=== PATIENT | female | born 1940 | race Caucasian/White ===

== ENCOUNTER → 2018-01-13 | Outpatient (CLI) | payer MEDICARE ==
--- NOTE | 2018-01-13 14:12 | XR ---
Abdomen HISTORY: Kidney stone Frontal view the abdomen on 2 images, no comparisons There is a levoscoliosis, degenerative disc changes are associated with the spine. Multiple calcifica tions are noted at the level of the kidneys. There are approximately 6-7 calcifications suspected wit hin the right kidney, largest measures approximately 9 mm. Approximately 3-4 calcifications suspected over the left kidney, largest approximately 6 mm. There are indeterminate calcifications within the pelvis. Retained fecal debris, bowel gas may obscure underlying detail. No evident bowel obstruction or pneumoperitoneum. Suspect elevation of the right hemidiaphragm. IMPRESSION: Suspect bilateral nephrolithiasis.
== END | disposition home or self-care (01) ==
LOC: RADXRMAIN 11:18
PROVIDERS: ATTEND Urology
DX: N20.0 Calculus of kidney (principal)
CPT/HCPCS: 74018

== ENCOUNTER 2019-07-01 15:12 | Inpatient (IN) | payer MEDICARE ==
--- NOTE | 2019-07-01 15:42 | ED ---
General Adult HPI - General Chief complaint: Recheck/Abnormal Lab/Rx Stated complaint: Poss Pneumonia Time Seen by Provider: 07/01/19 15:15 Source: patient, RN notes reviewed, old records reviewed Mode of arrival: wheelchair Limitations: no limitations - History of Present Illness Initial comments: This is a 78-year-old female who presents emergency department with past medical history significant for atrial fibrillation. Patient states the last couple of months she's been a little short of breath and had a cough. 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 Patient also complains of right knee pain she thinks she twisted it yesterday. Patient says it has been bothered for quite a while but it's much bigger than it is normally. - Related Data Allergies Allergy/AdvReac Type Severity Reaction Status Date / Time Penicillins Allergy Diarrhea Verified 07/01/19 15:20 Sulfa (Sulfonamide Allergy Itching Verified 07/01/19 15:20 Antibiotics) Review of Systems ROS Statement: Those systems with pertinent positive or pertinent negative responses have been documented in the HPI. ROS Other: All systems not noted in ROS Statement are negative. Past Medical History Past Medical History: Atrial Fibrillation, Diabetes Mellitus, Hypertension History of Any Multi-Drug Resistant Organisms: None Reported Past Surgical History: Hysterectomy Additional Past Surgical History / Comment(s): shoulder surgery Past Psychological History: No Psychological Hx Reported Smoking Status: Never smoker Past Alcohol Use History: None Reported Past Drug Use History: None Reported General Exam - General Exam Comments Initial Comments: GENERAL: Patient is well-developed and well-nourished. Patient is nontoxic and well- hydrated and is in mild distress. ENT: Neck is soft and supple. No significant lymphadenopathy is noted. Oropharynx is clear. Moist mucous membranes. Neck has full range of motion without tomas citing any pain. EYES: The sclera were anicteric and conjunctiva were pink and moist. Extraocular movements were intact and pupils were equal round and reactive to light. Eyelids were unremarkable. PULMONARY: Patient has crackles in the left base CARDIOVASCULAR: Patient has an irregular heartbeat ABDOMEN: Soft and nontender with normal bowel sounds. SKIN: Right knee has a significant effusion NEUROLOGIC: Patient is alert and oriented x3. Cranial nerves II through XII are grossly intact. Motor and sensory are also intact. Normal speech, volume and content. Symmetrical smile. MUSCULOSKELETAL: Normal extremities with adequate strength and full range of motion. LYMPHATICS: No significant lymphadenopathy is noted PSYCHIATRIC: Normal psychiatric evaluation. Limitations: no limitations Course Vital Signs 07/01/19 07/01/19 07/01/19 15:15 16:20 16:38 Temperature 97.8 F Pulse Rate 110 H Respiratory 18 20 16 Rate Blood Pressure 157/84 O2 Sat by Pulse 96 Oximetry Medical Decision Making - Medical Decision Making EKG is atrial fibrillation 77 bpm QRS is 90 QT interval 396 QTC is 448. Patient's EKG shows no ST segment elevation or depression. V1 is of poor quality. Chest x-ray shows a right upper lobe infiltrate Started patient on [facility] emergency pertinent. I spoke with Dr. Theodore agreed to admit the patient admitted the patient wrote admitting orders. Knee x-ray did not show any acute fractures however there was an effusion. - Lab Data Result diagrams: 07/01/19 16:13 07/01/19 16:13 Lab Results 07/01/19 07/01/19 07/01/19 Range/Units 16:13 16:13 16:13 WBC 10.9 H (3.8-10.6) k/uL RBC 4.97 (3.80-5.40) m/uL Hgb 14.2 (11.4-16.0) gm/dL Hct 44.1 (34.0-46.0) % MCV 88.7 (80.0-100.0) fL MCH 28.6 (25.0-35.0) pg MCHC 32.3 (31.0-37.0) g/dL RDW 12.6 (11.5-15.5) % Plt Count 316 (150-450) k/uL Neutrophils % 82 % Lymphocytes % 9 % Monocytes % 6 % Eosinophils % 1 % Basophils % 0 % Neutrophils # 9.0 H (1.3-7.7) k/uL Lymphocytes # 1.0 (1.0-4.8) k/uL Monocytes # 0.7 (0-1.0) k/uL Eosinophils # 0.1 (0-0.7) k/uL Basophils # 0.0 (0-0.2) k/uL PT 11.2 (9.0-12.0) sec INR 1.1 (<1.2) APTT 27.1 (22.0-30.0) sec Sodium 134 L (137-145) mmol/L Potassium 3.5 (3.5-5.1) mmol/L Chloride 97 L (98-107) mmol/L Carbon Dioxide 29 (22-30) mmol/L Anion Gap 8 mmol/L BUN 11 (7-17) mg/dL Creatinine 0.39 L (0.52-1.04) mg/dL Est GFR (CKD-EPI)AfAm >90 (>60 ml/min/1.73 sqM) Est GFR (CKD-EPI)NonAf >90 (>60 ml/min/1.73 sqM) Glucose 259 H (74-99) mg/dL Plasma Lactic Acid Graham (0.7-2.0) mmol/L Calcium 9.1 (8.4-10.2) mg/dL Magnesium 1.7 (1.6-2.3) mg/dL Total Bilirubin 0.6 (0.2-1.3) mg/dL AST 41 H (14-36) U/L ALT 31 (4-34) U/L Alkaline Phosphatase 197 H (38-126) U/L Troponin I (0.000-0.034) ng/mL NT-Pro-B Natriuret Pep pg/mL Total Protein 7.4 (6.3-8.2) g/dL Albumin 3.5 (3.5-5.0) g/dL 07/01/19 07/01/19 07/01/19 Range/Units 16:13 16:13 16:13 WBC (3.8-10.6) k/uL RBC (3.80-5.40) m/uL Hgb (11.4-16.0) gm/dL Hct (34.0-46.0) % MCV (80.0-100.0) fL MCH (25.0-35.0) pg MCHC (31.0-37.0) g/dL RDW (11.5-15.5) % Plt Count (150-450) k/uL Neutrophils % % Lymphocytes % % Monocytes % % Eosinophils % % Basophils % % Neutrophils # (1.3-7.7) k/uL Lymphocytes # (1.0-4.8) k/uL Monocytes # (0-1.0) k/uL Eosinophils # (0-0.7) k/uL Basophils # (0-0.2) k/uL PT (9.0-12.0) sec INR (<1.2) APTT (22.0-30.0) sec Sodium (137-145) mmol/L Potassium (3.5-5.1) mmol/L Chloride (98-107) mmol/L Carbon Dioxide (22-30) mmol/L Anion Gap mmol/L BUN (7-17) mg/dL Creatinine (0.52-1.04) mg/dL Est GFR (CKD-EPI)AfAm (>60 ml/min/1.73 sqM) Est GFR (CKD-EPI)NonAf (>60 ml/min/1.73 sqM) Glucose (74-99) mg/dL Plasma Lactic Acid Graham 1.9 (0.7-2.0) mmol/L Calcium (8.4-10.2) mg/dL Magnesium (1.6-2.3) mg/dL Total Bilirubin (0.2-1.3) mg/dL AST (14-36) U/L ALT (4-34) U/L Alkaline Phosphatase (38-126) U/L Troponin I <0.012 (0.000-0.034) ng/mL NT-Pro-B Natriuret Pep 2010 pg/mL Total Protein (6.3-8.2) g/dL Albumin (3.5-5.0) g/dL Disposition Clinical Impression: Pneumonia, Knee effusion Disposition: ADMITTED IP TO THIS HOSP Is patient prescribed a controlled substance at d/c from ED?: No Referrals: Edvin Lloyd MD [Primary Care Provider] - 1-2 days Time of Disposition: 17:49
[2019-07-01 16:24] LABS: Basophils % (A) 0 %; Eosinophils # (A) 0.1 k/uL (0-0.7); Eosinophils % (A) 1 %; HCT 44.1 % (34.0-46.0); HGB 14.2 gm/dL (11.4-16.0); Lymphocytes % (A) 9 %; MCH 28.6 pg (25.0-35.0); MCHC 32.3 g/dL (31.0-37.0); MCV 88.7 fL (80.0-100.0); Mean Platelet Volume 8.7; Monocytes # (A) 0.7 k/uL (0-1.0); Monocytes % (A) 6 %; Neutrophils % (A) 82 %; Platelet Count 316 k/uL (150-450); RBC 4.97 m/uL (3.80-5.40); RDW 12.6 % (11.5-15.5); WBC 10.9 k/uL (3.8-10.6)
[2019-07-01 16:32] LABS: ALT 31 U/L (4-34); AST 41 U/L (14-36); African American GFR (CKD) >90 (>60 ml/min/1.73 sqM); Albumin 3.5 g/dL (3.5-5.0); Alkaline Phosphatase 197 U/L (38-126); Anion Gap 8 mmol/L; Blood Urea Nitrogen 11 mg/dL (7-17); Calcium 9.1 mg/dL (8.4-10.2); Carbon Dioxide 29 mmol/L (22-30); Chloride 97 mmol/L (98-107); Glucose 259 mg/dL (74-99); INR 1.1 (<1.2); Magnesium 1.7 mg/dL (1.6-2.3); Non-African American GFR(CKD) >90 (>60 ml/min/1.73 sqM); Partial Thromboplastin Time 27.1 sec (22.0-30.0); Potassium 3.5 mmol/L (3.5-5.1); Prothrombin Time 11.2 sec (9.0-12.0); Sodium 134 mmol/L (137-145); Total Bilirubin 0.6 mg/dL (0.2-1.3); Total Protein 7.4 g/dL (6.3-8.2)
--- NOTE | 2019-07-01 16:58 | XR ---
EXAMINATION TYPE: XR knee complete RT DATE OF EXAM: 07/01/2019 CLINICAL HISTORY: pain TECHNIQUE: Three views of the right knee are obtained. COMPARISON: None. FINDINGS: There is no acute fracture/dislocation. The tri-compartment joint spaces appear narrowed. Calcifications suprapatellar bursa with fluid noted. IMPRESSION: There is no acute fracture or dislocation.ICD 10 NO FRACTURE, INITIAL EVALUATION
--- NOTE | 2019-07-01 17:08 | XR ---
EXAMINATION TYPE: XR chest 2V DATE OF EXAM: 07/01/2019 COMPARISON: NONE HISTORY: Shortness of breath TECHNIQUE: Frontal and lateral views of the chest are obtained. FINDINGS: Scattered senescent parenchymal changes noted. Hyperinflation compatible with COPD. Infiltrate right upper lobe may reflect postinflammatory change however pneumonia is not excluded. Co rrelate clinically. Heart size is stable. Mediastinal structures are stable and grossly unremarkable. No evidence for hilar prominence. Degenerative changes dorsal spine. IMPRESSION: 1. Infiltrate right upper lobe may reflect postinflammatory change however pneumonia is not excluded. Correlate clinically.
[2019-07-01] MEDS ORDERED: cefTRIAXone IN SWFI 1,000 MG/10 ML SYRINGE IVP STA (17:29)
[2019-07-01] MEDS ORDERED: AZITHROMYCIN 500 MG in SODIUM CHLORIDE 0.9% 250 ML IVPB STA (17:51)
[2019-07-01] MEDS ORDERED: PNEUMONIA PROTOCOL UTILIZED 1 EACH MISC PO PRN (17:51)
[2019-07-01] MEDS ORDERED: SODIUM CHLORIDE 0.9% 1,000 ML IV SCH (19:15)
[2019-07-01] MEDS ORDERED: ALBUTEROL NEBULIZED 2.5 MG/3 ML INHALATION PRN (19:56)
[2019-07-01 20:38] LABS: Glucose,Whole Blood 138 mg/dL (75-99)
[2019-07-01] MEDS: INSULIN ASPART (NovoLOG) 100 UNIT/ML VIAL SQ SCH (20:48)
[2019-07-01] MEDS: METOPROLOL TARTRATE 12.5 MG TAB PO SCH (20:48)
[2019-07-01] MEDS: APIXABAN 5 MG TAB PO SCH (20:48)
[2019-07-01] MEDS: cloNIDine HCL 0.1 MG TAB PO SCH (20:48)
[2019-07-01] MEDS: ACETAMINOPHEN TAB 325 MG TAB PO PRN (20:48)
--- NOTE | 2019-07-01 21:18 | P.HPIM ---
History of Present Illness H&P Date: 07/01/19 Chief Complaint: Right knee pain History of presenting complaint: This is a pleasant 78-year-old patient of Dr. Edvin Lloyd. Chronic stable medical conditions include atrial fibrillation, diabetes, hypertension. Patient for 1 day having increased pain in the right knee. Not sure if she twisted it while sleeping. Also swollen. Trouble walking the same. No fever no chills. Patient has recently diagnosed with atrial fibrillation on eliquis. Being followed by Dr. YOAN Urbina. Patient had some shortness of breath for quite sometimes occasional cough with frothy sputum. Chest x-ray showed some venous prominence. No colored sputum. No fever or chills. Review of systems: GEN.: Tired EYES: None HEENT: None NECK: None RESPIRATORY: As above CARDIOVASCULAR: None GASTROINTESTINAL: None GENITOURINARY: None MUSCULOSKELETAL: As above LYMPHATICS: None HEMATOLOGICAL: None PSYCHIATRY: None NEUROLOGICAL: None Past medical history to include: Atrial fibrillation, diet-controlled diabetes, hypertension, Social history: Does smoke in the remote past no alcohol. Lives with son. Physical examination: VITAL SIGNS: 97.8, 110, 18, 157/84, 96% on room air GENERAL: BMI 25.5, laying in bed, awake. EYES: Pupils equal. Conjunctiva normal. HEENT: External appearance of nose and ears normal, oral cavity grossly normal. NECK: JVD unable to assess; masses not palpable. HEART: Heart sounds irregular; no edema. LUNGS: Respiratory rate normal; bilateral basal crackles. ABDOMEN: Soft, nontender, liver spleen not palpable, no masses palpable. PSYCH: Alert and oriented x3; mood and affect normal. MUSCULAR skeletal: Swelling of the right knee with some local increased temperature evidence of OA especially in the hands NEUROLOGICAL: Cranial nerves grossly intact; no facial asymmetry, power and sensation grossly intact. LYMPHATICS: No lymph nodes palpable in the axilla and neck INVESTIGATIONS, reviewed in the clinical context: White count 10.9 hemoglobin 14.2 potassium 3.5 creatinine 0.39 Troponin I less than 0.012 proBNP 2009 EKG tracing personally reviewed by me-atrial fibrillation Chest x-ray film personally reviewed by me-venous prominence Assessment: -Acute congestive heart failure exacerbation -Acute right knee osteoarthritis flare up with signs of inflammation -Persistent atrial fibrillation chronically on eliquis -Essential hypertension Plan: Patient be put on telemetry. IV Lasix 40 mg daily. Order 2-D echocardiogram. Consultation to cardiology and orthopedic. Home medications to be resumed. Care was discussed with the patient question were answered. Will apply ice and the warfarin Gen. to the right knee. Care was discussed with the patient questions were answered. Past Medical History Past Medical History: Atrial Fibrillation, Diabetes Mellitus, Hypertension History of Any Multi-Drug Resistant Organisms: None Reported Past Surgical History: Hysterectomy, Tonsillectomy, Tubal Ligation Additional Past Surgical History / Comment(s): shoulder surgery Past Psychological History: No Psychological Hx Reported Smoking Status: Former smoker Past Alcohol Use History: None Reported Past Drug Use History: None Reported - Past Family History Mother Family Medical History: Cancer, Thyroid Disorder Additional Family Medical History / Comment(s): of lung cancer Father Additional Family Medical History / Comment(s): a lot of heart issues Medications and Allergies Home Medications Medication Instructions Recorded Confirmed Type Albuterol Sulfate [Proair Hfa] 2 puff INHALATION RT-Q4H PRN 07/01/19 07/01/19 History Apixaban [Eliquis] 5 mg PO BID 07/01/19 07/01/19 History Cholecalciferol [Vitamin D3 (25 1,000 unit PO DAILY 07/01/19 07/01/19 History Mcg = 1000 Iu)] Ferrous Sulfate [Feosol] 325 mg PO DAILY 07/01/19 07/01/19 History Furosemide [Lasix] 20 mg PO DAILY 07/01/19 07/01/19 History Ipratropium Union [Ipratropium 2 sprays EA NOSTRIL BID PRN 07/01/19 07/01/19 History Union 0.03%] L.acidoph,Paracasei, B.lactis 1 cap PO DAILY 07/01/19 07/01/19 History [Probiotic] Lisinopril-Hctz 20-25 mg 1 tab PO DAILY 07/01/19 07/01/19 History [Zestoretic 20-25] Loratadine [Claritin] 10 mg PO DAILY 07/01/19 07/01/19 History Metoprolol Tartrate [Lopressor] 12.5 mg PO HS 07/01/19 07/01/19 History Metoprolol Tartrate [Lopressor] 25 mg PO DAILY 07/01/19 07/01/19 History Nitrofurantoin Macrocrystal 50 mg PO DAILY 07/01/19 07/01/19 History [Nitrofurantoin] Omeprazole Magnesium [PriLOSEC OTC] 20 mg PO DAILY 07/01/19 07/01/19 History Vitamin B Complex 1 cap PO DAILY 07/01/19 07/01/19 History cloNIDine HCL [Catapres] 0.1 mg PO BID 07/01/19 07/01/19 History Allergies Allergy/AdvReac Type Severity Reaction Status Date / Time Sulfa (Sulfonamide Allergy Itching Verified 07/01/19 18:22 Antibiotics) Penicillins AdvReac Diarrhea Verified 07/01/19 18:22 Physical Exam Vitals: Vital Signs Temp Pulse Pulse Resp BP BP Pulse Ox 07/01/19 19:20 97.9 F 93 17 115/74 96 07/01/19 18:55 98.7 F 107 H 18 140/81 96 07/01/19 17:57 18 159/84 07/01/19 16:38 16 07/01/19 16:20 20 07/01/19 16:00 103 H 18 143/86 98 07/01/19 15:15 97.8 F 110 H 18 157/84 96 Intake and Output 07/01/19 07/01/19 07/01/19 06:59 14:59 22:59 Intake Total 300 Balance 300 Intake: Amount of Fluid Infused ( 100 ml) Oral 200 Other: # Voids 1 Weight 69.4 kg Results CBC & Chem 7: 07/01/19 16:13 07/01/19 16:13 Labs: Abnormal Lab Results - Last 24 Hours (Table) 07/01/19 07/01/19 07/01/19 Range/Units 16:13 16:13 20:37 WBC 10.9 H (3.8-10.6) k/uL Neutrophils # 9.0 H (1.3-7.7) k/uL Sodium 134 L (137-145) mmol/L Chloride 97 L (98-107) mmol/L Creatinine 0.39 L (0.52-1.04) mg/dL Glucose 259 H (74-99) mg/dL POC Glucose (mg/dL) 138 H (75-99) mg/dL AST 41 H (14-36) U/L Alkaline Phosphatase 197 H (38-126) U/L Thrombosis Risk Factor Assmnt - Choose All That Apply Any of the Below Risk Factors Present?: No Other Risk Factors: Yes Each Risk Factor Represents 3 Points: Age 75 years or older Thrombosis Risk Factor Assessment Total Risk Factor Score: 3 Thrombosis Risk Factor Assessment Level: Moderate Risk
[2019-07-01] MEDS: DICLOFENAC SODIUM GEL 100 GM TUBE TOPICAL SCH (22:33)
[2019-07-01] MEDS: FUROSEMIDE 10 MG/ML 4 ML VIAL IV SCH (22:34)
[2019-07-02] MEDS: FUROSEMIDE 10 MG/ML 4 ML VIAL IV SCH ×2 (00:52→08:29)
[2019-07-02] MEDS: ACETAMINOPHEN TAB 325 MG TAB PO PRN ×2 (06:08→12:18)
[2019-07-02 06:48] LABS: Glucose,Whole Blood 128 mg/dL (75-99)
[2019-07-02] MEDS: INSULIN ASPART (NovoLOG) 100 UNIT/ML VIAL SQ SCH ×4 (07:13→20:42)
[2019-07-02 08:05] LABS: African American GFR (CKD) >90 (>60 ml/min/1.73 sqM); Anion Gap 9 mmol/L; Blood Urea Nitrogen 14 mg/dL (7-17); Calcium 9.2 mg/dL (8.4-10.2); Carbon Dioxide 27 mmol/L (22-30); Chloride 99 mmol/L (98-107); Glucose 141 mg/dL (74-99); Non-African American GFR(CKD) >90 (>60 ml/min/1.73 sqM); Potassium 3.8 mmol/L (3.5-5.1); Sodium 135 mmol/L (137-145)
[2019-07-02] MEDS: LISINOPRIL-HCTZ 20-25 MG 1 EACH TAB PO SCH (08:28)
[2019-07-02] MEDS: METOPROLOL TARTRATE 25 MG TAB PO SCH (08:28)
[2019-07-02] MEDS: PANTOPRAZOLE 40 MG TABLET PO SCH (08:28)
[2019-07-02] MEDS: APIXABAN 5 MG TAB PO SCH ×2 (08:29→20:45)
[2019-07-02] MEDS: LACTOBACILLUS ACIDOPH & BULGAR 1 EACH PACKET PO SCH (08:29)
[2019-07-02] MEDS: cloNIDine HCL 0.1 MG TAB PO SCH ×2 (08:29→20:45)
[2019-07-02] MEDS: LORATADINE 10 MG TAB PO SCH (08:29)
[2019-07-02] MEDS: FERROUS SULFATE 325 MG TAB PO SCH (08:29)
[2019-07-02] MEDS: CHOLECALCIFEROL 1,000 UNIT TAB PO SCH (08:29)
[2019-07-02] MEDS: DICLOFENAC SODIUM GEL 100 GM TUBE TOPICAL SCH ×4 (08:31→20:46)
[2019-07-02] MEDS ORDERED: FUROSEMIDE 20 MG TAB PO SCH (09:00)
[2019-07-02] MEDS ORDERED: NON FORMULARY DRUG (Vitamin B Complex [Vitamin B Complex] 1 CAP) PO SCH (09:00)
--- NOTE | 2019-07-02 09:56 | ECHOF ---
Referral Reason:CHF MEASUREMENTS -------- HEIGHT: 165.1 cm WEIGHT: 69.4 kg BP: 131/81 RVIDd: 4.0 cm (< 3.3) IVSd: 1.5 cm (0.6 - 1.1) LVIDd: 3.0 cm (3.9 - 5.3) LVPWd: 1.2 cm (0.6 - 1.1) IVSs: 2.1 cm LVIDs: 1.6 cm LVPWs: 2.0 cm LAESV Index (A-L): 41.11 ml/m Ao Diam: 2.9 cm (2.0 - 3.7) AV Cusp: 1.5 cm (1.5 - 2.6) AV maxP.59 mmHg AV meanP.04 mmHg AR PHT: 344 ms RAP: 5.00 mmHg RVSP: 55.14 mmHg FINDINGS -------- Atrial fibrillation. This was a technically good study. The left ventricular size is normal. There is moderate concentric left ventricular hypertrophy. O verall left ventricular systolic function is normal with, an EF between 60 - 65 %. Left ventricular fillimg pressure cannot be estimated due to Atrial fibrillation. The right ventricle is moderate to severely enlarged. LA is moderately dilated 34-39 ml/m2 The right atrium is moderately enlarged. Interatrial and interventricular septum intact. There is mild aortic regurgitation. There is moderate aortic stenosis present. Peak/mean gradient across the Aortic Valve is 46.59mmHg / 28.04mmHg. Mild mitral annular calcification present. Moderate mitral regurgitation is present. Moderate to severe tricuspid regurgitation present. There is moderate pulmonary hypertension. The right ventricular systolic pressure, as measured by Doppler, is 55.14mmHg. The pulmonic valve was not well visualized. There is no pulmonic regurgitation present. The aortic root size is normal. IVC Not well visulized. There is no pericardial effusion. CONCLUSIONS -------- 1. Atrial fibrillation. 2. This was a technically good study. 3. The left ventricular size is normal. 4. There is moderate concentric left ventricular hypertrophy. 5. Overall left ventricular systolic function is normal with, an EF between 60 - 65 %. 6. Left ventricular fillimg pressure cannot be estimated due to Atrial fibrillation. 7. The right ventricle is moderate to severely enlarged. 8. LA is moderately dilated 34-39 ml/m2 9. The right atrium is moderately enlarged. 10. Interatrial and interventricular septum intact. 11. There is mild aortic regurgitation. 12. There is moderate aortic stenosis present. 13. Peak/mean gradient across the Aortic Valve is 46.59mmHg / 28.04mmHg. 14. Mild mitral annular calcification present. 15. Moderate mitral regurgitation is present. 16. Moderate to severe tricuspid regurgitation present. 17. There is moderate pulmonary hypertension. 18. The right ventricular systolic pressure, as measured by Doppler, is 55.14mmHg. 19. The pulmonic valve was not well visualized. 20. The aortic root size is normal. 21. IVC Not well visulized. 22. There is no pericardial effusion. EXPLOSIVE MAN: Darlyn Gasca RDCS
[2019-07-02 11:37] LABS: Glucose,Whole Blood 182 mg/dL (75-99)
--- NOTE | 2019-07-02 11:51 | P.CRDCN ---
History of Present Illness History of present illness: HISTORY OF PRESENTING ILLNESS This is a pleasant 78-year-old female past medical history significant for paroxysmal atrial fibrillation newly diagnosed in the office with Dr. Urbina last month, aortic and mitral regurgitation, diet controlled diabetes mellitus, hypertension, arthritis and dyslipidemia. She follows in the office with Dr. Urbina. We have been asked to see in consultation for heart failure. She saw Dr. Urbina in the office 06/28 with complaints of shortness of breath. She states this has been going on for approximately 1-2weeks with cough, nasal drainage and sinus pressure. She was advised to undergo a chest xray revealing bilateral infiltrates. She was sent to the hospital for further testing to include COVID 19 testing. She also suffered an injury to her right knee. She denies trauma. She had a spontaneous right knee pain and swelling. Echocardiogram obtained revealed preserved LV systolic function with EF 60-65%, mild aortic regurgitation, moderate aortic stenosis with mean gradient 28 mmHg, moderate mitral regurgitation, moderate to severe tricuspid regurgitation and moderate pulmonary hypertension with RVSP of 55 mmHg. DIAGNOSTICS EKG reveals atrial fibrillation heart rate 77. Chest xray infiltrate in the right upper lobe. Laboratory reviewed, WBC 10.9, hgb 14.2, plt 316, sodium 135, potassium 3.8, creatinine 0.44, magnesium 1.7, troponin negative x1, NTproBNP 2010, negative for influenza A and B. Current cardiac medications include clonidine 0.1 mg BID, lopressor 25 mg in the AM and 12.5 mg at bedtime, lisinopril/hctz 20/25 mg daily, lasix 20 mg daily and eliquis 5 mg BID. Most recent stress test in the office was a Lexiscan in 2017 that was negative for reversible ischemia. Most recent echocardiogram obtained in the office reveals preserved LV systolic function with EF 55%, severely dilated LA, modreate AR, mild aortic stenosis with a mean gradient of 19 and a valve area of 1.73 cm, mild MR and moderate TR. REVIEW OF SYSTEMS At the time of my exam: CONSTITUTIONAL: Denies fever or chills. CARDIOVASCULAR: Complains of shortness of breath. Denies chest pain, orthopnea, PND or palpitations. RESPIRATORY: Denies cough. GASTROINTESTINAL: Denies abdominal pain, diarrhea, constipation, nausea or vomiting. MUSCULOSKELETAL: Complains of right knee pain and swelling. NEUROLOGIC: Denies numbness, tingling or weakness. ENDOCRINE: Denies fatigue, weight change, polydipsia or polyurina. GENITOURINARY: Denies burning, hematuria or urgency with micturation. HEMATOLOGIC: Denies history of anemia or bleeding. PHYSICAL EXAMINATION Blood pressure 137/80 heart rate 52 afebrile and maintaining oxygen saturation on room air. CONSTITUTIONAL: No apparent distress. HEENT: Head is normocephalic. Pupils are equal, round. Sclerae anicteric. Mucous membranes of the mouth are moist. No JVD. No carotid bruit. CHEST EXAMINATION: Lungs are clear to auscultation. No chest wall tenderness is noted on palpation or with deep breathing. HEART EXAMINATION: Irregular rate and rhythm. S1, S2 heard. Systolic ejection murmur at the base, no gallops or rub. ABDOMEN: Soft, nontender. Positive bowel sounds. EXTREMITIES: 2+ peripheral pulses, no lower extremity edema and no calf tenderness. Right knee swelling. NEUROLOGIC EXAMINATION: Patient is awake, alert and oriented x3. ASSESSMENT Shortness of breath with evidence of right upper lobe infiltrate and leukocytosis Mild acute on chronic diastolic heart failure, improved with IV lasis Leukocytosis Paroxysmal atrial fibrillation on [employer] anti-coagulation Valvular heart disease Diabetes mellitus Hypertension Dyslipidemia Arthritis PLAN Transition to oral diuretics. Check for influenza A and B, if negative obtain COVID 19 test. Clinically she is quite stable, consider possible discharge home to quarantine. Thank you kindly for this consultation. Nurse Practitioner note has been reviewed, I agree with a documented findings and plan of care. Patient was seen and examined. Past Medical History Past Medical History: Atrial Fibrillation, Diabetes Mellitus, Hypertension History of Any Multi-Drug Resistant Organisms: None Reported Past Surgical History: Hysterectomy, Tonsillectomy, Tubal Ligation Additional Past Surgical History / Comment(s): shoulder surgery Past Psychological History: No Psychological Hx Reported Smoking Status: Former smoker Past Alcohol Use History: None Reported Past Drug Use History: None Reported - Past Family History Mother Family Medical History: Cancer, Thyroid Disorder Additional Family Medical History / Comment(s): of lung cancer Father Additional Family Medical History / Comment(s): a lot of heart issues Medications and Allergies Home Medications Medication Instructions Recorded Confirmed Type Albuterol Sulfate [Proair Hfa] 2 puff INHALATION RT-Q4H PRN 07/01/19 07/01/19 History Apixaban [Eliquis] 5 mg PO BID 07/01/19 07/01/19 History Cholecalciferol [Vitamin D3 (25 1,000 unit PO DAILY 07/01/19 07/01/19 History Mcg = 1000 Iu)] Ferrous Sulfate [Feosol] 325 mg PO DAILY 07/01/19 07/01/19 History Furosemide [Lasix] 20 mg PO DAILY 07/01/19 07/01/19 History Ipratropium [place] [Ipratropium 2 sprays EA NOSTRIL BID PRN 07/01/19 07/01/19 History [place] 0.03%] L.acidoph,Paracasei, B.lactis 1 cap PO DAILY 07/01/19 07/01/19 History [Probiotic] Lisinopril-Hctz 20-25 mg 1 tab PO DAILY 07/01/19 07/01/19 History [Zestoretic -] Loratadine [Claritin] 10 mg PO DAILY 07/01/19 07/01/19 History Metoprolol Tartrate [Lopressor] 12.5 mg PO HS 07/01/19 07/01/19 History Metoprolol Tartrate [Lopressor] 25 mg PO DAILY 07/01/19 07/01/19 History Nitrofurantoin Macrocrystal 50 mg PO DAILY 07/01/19 07/01/19 History [Nitrofurantoin] Omeprazole Magnesium [PriLOSEC OTC] 20 mg PO DAILY 07/01/19 07/01/19 History Vitamin B Complex 1 cap PO DAILY 07/01/19 07/01/19 History cloNIDine HCL [Catapres] 0.1 mg PO BID 07/01/19 07/01/19 History Allergies Allergy/AdvReac Type Severity Reaction Status Date / Time Sulfa (Sulfonamide Allergy Itching Verified 07/01/19 18:22 Antibiotics) Penicillins AdvReac Diarrhea Verified 07/01/19 18:22 Physical Exam Vitals: Vital Signs Temp Pulse Pulse Resp BP BP Pulse Ox 07/02/19 08:00 15 07/02/19 07:00 97.6 F 52 L 15 137/80 96 07/02/19 02:45 98.2 F 72 17 131/81 96 07/01/19 19:20 97.9 F 93 17 115/74 96 07/01/19 18:55 98.7 F 107 H 18 140/81 96 07/01/19 17:57 18 159/84 07/01/19 16:38 16 07/01/19 16:20 20 07/01/19 16:00 103 H 18 143/86 98 07/01/19 15:15 97.8 F 110 H 18 157/84 96 Intake and Output 07/01/19 07/02/19 07/02/19 22:59 06:59 14:59 Intake Total 300 Output Total 400 1200 Balance -100 -1200 Intake: Amount of Fluid Infused ( 100 ml) Oral 200 Output: Urine 400 1200 Other: # Voids 1 5 Weight 69.4 kg Results 07/01/19 16:13 07/02/19 06:57 Cardiac Enzymes 07/01/19 07/01/19 Range/Units 16:13 16:13 AST 41 H (14-36) U/L Troponin I <0.012 (0.000-0.034) ng/mL Coagulation 07/01/19 Range/Units 16:13 PT 11.2 (9.0-12.0) sec APTT 27.1 (22.0-30.0) sec CBC 07/01/19 Range/Units 16:13 WBC 10.9 H (3.8-10.6) k/uL RBC 4.97 (3.80-5.40) m/uL Hgb 14.2 (11.4-16.0) gm/dL Hct 44.1 (34.0-46.0) % Plt Count 316 (150-450) k/uL Comprehensive Metabolic Panel 07/01/19 07/02/19 Range/Units 16:13 06:57 Sodium 134 L 135 L (137-145) mmol/L Potassium 3.5 3.8 (3.5-5.1) mmol/L Chloride 97 L 99 (98-107) mmol/L Carbon Dioxide 29 27 (22-30) mmol/L BUN 11 14 (7-17) mg/dL Creatinine 0.39 L 0.44 L (0.52-1.04) mg/dL Glucose 259 H 141 H (74-99) mg/dL Calcium 9.1 9.2 (8.4-10.2) mg/dL AST 41 H (14-36) U/L ALT 31 (4-34) U/L Alkaline Phosphatase 197 H (38-126) U/L Total Protein 7.4 (6.3-8.2) g/dL Albumin 3.5 (3.5-5.0) g/dL Current Medications Generic Name Dose Route Start Last Admin Trade Name Freq PRN Reason Stop Dose Admin Acetaminophen 650 mg 07/01/19 19:59 07/02/19 06:08 Tylenol Tab PO 650 mg Q6HR PRN Administration Fever and/ or Mild Pain Albuterol Sulfate 2.5 mg 07/01/19 19:56 Ventolin Nebulized INHALATION RT-Q4H PRN Shortness Of Breath Apixaban 5 mg 07/01/19 21:00 07/02/19 08:29 Eliquis PO 5 mg BID BOB Administration Cholecalciferol 1,000 unit 07/02/19 09:00 07/02/19 08:29 Vitamin D3 (25 Mcg = 1000 Iu) PO 1,000 unit DAILY BOB Administration Clonidine 0.1 mg 07/01/19 21:00 07/02/19 08:29 Catapres PO 0.1 mg BID BOB Administration Diclofenac Sodium 4 gm 07/01/19 22:00 07/02/19 08:31 Voltaren Gel TOPICAL 4 gm QID BOB Administration Ferrous Sulfate 325 mg 07/02/19 09:00 07/02/19 08:29 Feosol PO 325 mg DAILY BOB Administration Furosemide 40 mg 07/01/19 21:11 07/02/19 08:29 Lasix IV 40 mg Q8HR BOB Administration Lisinopril/HCTZ 1 each 07/02/19 09:00 07/02/19 08:28 Zestoretic 20-25 PO 1 each DAILY BOB Administration Insulin Aspart 0 unit 07/01/19 21:00 07/02/19 07:13 Novolog SQ Not Given ACHS [facility] Protocol Lactobacillus Acidoph/Bulgaricus 1 each 07/02/19 09:00 07/02/19 08:29 Lactinex PO 1 each DAILY BOB Administration Loratadine 10 mg 07/02/19 09:00 07/02/19 08:29 Claritin PO 10 mg DAILY BOB Administration Metoprolol Tartrate 25 mg 07/02/19 09:00 07/02/19 08:28 Lopressor PO 25 mg DAILY BOB Administration Metoprolol Tartrate 12.5 mg 07/01/19 21:00 07/01/19 20:48 Lopressor PO 12.5 mg HS BOB Administration Miscellaneous Information 1 each 07/01/19 17:51 Pneumonia Protocol Utilized PO ONCE PRN Per Protocol Pantoprazole Sodium 40 mg 07/02/19 07:30 07/02/19 08:28 Protonix PO 40 mg AC-BRKFST BOB Administration Intake and Output 07/01/19 07/02/19 07/02/19 22:59 06:59 14:59 Intake Total 300 Output Total 400 1200 Balance -100 -1200 Intake: Amount of Fluid Infused ( 100 ml) Oral 200 Output: Urine 400 1200 Other: # Voids 1 5 Weight 69.4 kg 07/01/19 16:13 07/02/19 06:57
--- NOTE | 2019-07-02 12:31 | P.CNOR ---
History of Present Illness - [facility] Consult date: 07/02/19 History of present illness: This patient is a 78-year-old female with past medical history of hypertension, diabetes, atrial fibrillation currently on Eliquis that presented to [facility] ER yesterday. The patient states she was seen by her primary care doctor as an outpatient, a chest x-ray was obtained and the patient states her primary care doctor called her and told her due to an abnormality seen on her chest x-ray should come to the ER. The patient also had complaints of right knee pain upon presentation to the ER. The patient states there was no significant injury, although she believes that she twisted the knee while she was sleeping in her chair yesterday. She states she had her legs crossed at the time. She states when she woke up, she was able to weight-bear comfortably on the right knee. She also noticed swelling of the knee. She states she has not attempted to weight-bear on the knee today yet. She states her knee pain feels similar to yesterday. She denies erythema, warmth of the knee. She denies fevers, chills, nausea, vomiting. Vital signs stable. Past Medical History Past Medical History: Atrial Fibrillation, Diabetes Mellitus, Hypertension History of Any Multi-Drug Resistant Organisms: None Reported Past Surgical History: Hysterectomy, Tonsillectomy, Tubal Ligation Additional Past Surgical History / Comment(s): shoulder surgery Past Psychological History: No Psychological Hx Reported Smoking Status: Former smoker Past Alcohol Use History: None Reported Past Drug Use History: None Reported - Past Family History Mother Family Medical History: Cancer, Thyroid Disorder Additional Family Medical History / Comment(s): of lung cancer Father Additional Family Medical History / Comment(s): a lot of heart issues Medications and Allergies Home Medications Medication Instructions Recorded Confirmed Type Albuterol Sulfate [Proair Hfa] 2 puff INHALATION RT-Q4H PRN 07/01/19 07/01/19 History Apixaban [Eliquis] 5 mg PO BID 07/01/19 07/01/19 History Cholecalciferol [Vitamin D3 (25 1,000 unit PO DAILY 07/01/19 07/01/19 History Mcg = 1000 Iu)] Ferrous Sulfate [Feosol] 325 mg PO DAILY 07/01/19 07/01/19 History Furosemide [Lasix] 20 mg PO DAILY 07/01/19 07/01/19 History Ipratropium [place] [Ipratropium 2 sprays EA NOSTRIL BID PRN 07/01/19 07/01/19 History [place] 0.03%] L.acidoph,Paracasei, B.lactis 1 cap PO DAILY 07/01/19 07/01/19 History [Probiotic] Lisinopril-Hctz 20-25 mg 1 tab PO DAILY 07/01/19 07/01/19 History [Zestoretic -] Loratadine [Claritin] 10 mg PO DAILY 07/01/19 07/01/19 History Metoprolol Tartrate [Lopressor] 12.5 mg PO HS 07/01/19 07/01/19 History Metoprolol Tartrate [Lopressor] 25 mg PO DAILY 07/01/19 07/01/19 History Nitrofurantoin Macrocrystal 50 mg PO DAILY 07/01/19 07/01/19 History [Nitrofurantoin] Omeprazole Magnesium [PriLOSEC OTC] 20 mg PO DAILY 07/01/19 07/01/19 History Vitamin B Complex 1 cap PO DAILY 07/01/19 07/01/19 History cloNIDine HCL [Catapres] 0.1 mg PO BID 07/01/19 07/01/19 History Allergies Allergy/AdvReac Type Severity Reaction Status Date / Time Sulfa (Sulfonamide Allergy Itching Verified 07/01/19 18:22 Antibiotics) Penicillins AdvReac Diarrhea Verified 07/01/19 18:22 Physical Examination On examination, the patient is sitting in bed in no apparent distress. She is alert and oriented 3. Her head appears normocephalic and atraumatic. Her breathing appears nonlabored. Her bilateral upper extremities show no obvious deformity or signs of trauma. On inspection of the right knee, there is a large effusion. There is no overlying erythema or warmth. There is diffuse pain on palpation of the knee. Moderate pain with passive range of motion of the knee. Patient states she is unable to perform a straight leg raise due to her pain. No pain with passive range of motion of the hip. Patient has good strength and range of motion of her right ankle. Motor and sensory function intact to right lower extremity. Right lower extremity warm and well perfused with brisk capillary refill. Dorsalis pedis pulse +2. Results Right knee x-ray 07/01/2019: Evidence of tricompartmental arthritis. No acute fractures or dislocations. - Labs Labs: Abnormal Lab Results - Last 24 Hours (Table) 07/01/19 07/01/19 07/01/19 Range/Units 16:13 16:13 20:37 WBC 10.9 H (3.8-10.6) k/uL Neutrophils # 9.0 H (1.3-7.7) k/uL Sodium 134 L (137-145) mmol/L Chloride 97 L (98-107) mmol/L Creatinine 0.39 L (0.52-1.04) mg/dL Glucose 259 H (74-99) mg/dL POC Glucose (mg/dL) 138 H (75-99) mg/dL AST 41 H (14-36) U/L Alkaline Phosphatase 197 H (38-126) U/L 07/02/19 07/02/19 Range/Units 06:45 06:57 WBC (3.8-10.6) k/uL Neutrophils # (1.3-7.7) k/uL Sodium 135 L (137-145) mmol/L Chloride (98-107) mmol/L Creatinine 0.44 L (0.52-1.04) mg/dL Glucose 141 H (74-99) mg/dL POC Glucose (mg/dL) 128 H (75-99) mg/dL AST (14-36) U/L Alkaline Phosphatase (38-126) U/L H & H 07/01/19 Range/Units 16:13 Hgb 14.2 (11.4-16.0) gm/dL Hct 44.1 (34.0-46.0) % Coagulation 07/01/19 Range/Units 16:13 INR 1.1 (<1.2) Result Diagrams: 07/01/19 16:13 07/02/19 06:57 Assessment and Plan Assessment: Acute osteoarthritis exacerbation, Right knee Plan: The clinical and imaging findings were discussed with the patient. The patient was discussed with Dr. Shawn Patel. We discussed performing an aspiration of the right knee effusion, although based on the concern of possible COVID 19, we will hold off on aspiration at this time and monitor the patient's clinical course. Physical therapy for gait and balance training. Ice and elevation of the right knee for pain and swelling control. Pain management per admitting team. We will continue to follow patient and make recommendations as needed.
--- NOTE | 2019-07-02 16:59 | XR ---
EXAMINATION TYPE: XR chest 2V DATE OF EXAM: 07/02/2019 COMPARISON: Yesterday HISTORY: Pneumonia TECHNIQUE: 2 views FINDINGS: There is some patchy interstitial and airspace infiltrate right upper lobe. There is coarse sameera of the lung markings. Heart is enlarged. There is right shoulder prosthesis. Thoracic aorta is a theromatous. There is no pleural effusion. There is no gross heart failure. IMPRESSION: Right upper lobe pneumonia unchanged. Pulmonary interstitial fibrosis unchanged. No heart failure seen.
[2019-07-02] MEDS: Acetaminophen-Codeine 300-30mg TAB PO PRN ×2 (17:10→20:44)
[2019-07-02 17:19] LABS: Glucose,Whole Blood 124 mg/dL (75-99)
--- NOTE | 2019-07-02 17:23 | CT ---
EXAMINATION TYPE: CT chest wo con DATE OF EXAM: 07/02/2019 COMPARISON: None HISTORY: Possible pulmonary fibrosis. CT DLP: 371.3 mGycm Automated exposure control for dose reduction was used. Multiple axial sections were obtained from the thoracic inlet to the diaphragm with no contrast. FINDINGS: There is coarse interstitial reticular pulmonary infiltrates throughout both lungs. There is some low er lobe bilateral bronchiectasis. Heart is enlarged. There is no pericardial effusion. There is no pl eural effusion. There is more coalescent infiltrate right upper lobe with cystic changes. There is no significant mediastinal adenopathy. There are no hilar masses. The bony thorax appears in tact. IMPRESSION: Coarse extensive pulmonary interstitial infiltrates with septal thickening consistent with pulmonary fibrosis. There is slightly more noticeable involvement right upper lobe There is patchy bronchiectas is. No suspicious pulmonary mass. Moderate cardiomegaly.
[2019-07-02] MEDS ORDERED: AZITHROMYCIN 500 MG TAB PO SCH (18:00)
--- NOTE | 2019-07-02 18:17 | P.PN ---
Progress Note - Text Progress Note Date: 07/02/19 Chief Complaint: Right knee pain History of presenting complaint: This is a pleasant 78-year-old patient of Dr. Edvin Lloyd. Chronic stable medical conditions include atrial fibrillation, diabetes, hypertension. Patient for 1 day having increased pain in the right knee. Not sure if she twisted it while sleeping. Also swollen. Trouble walking the same. No fever no chills. Patient has recently diagnosed with atrial fibrillation on eliquis. Being followed by Dr. YOAN Urbina. Patient had some shortness of breath for quite sometimes occasional cough with frothy sputum. Chest x-ray showed some venous prominence. No colored sputum. No fever or chills. Admitted with-possible acute congestive heart failure, acute right knee flare up of osteoarthritis. Started on IV Lasix. Today-still having pain in the right knee. Awaiting aspiration by orthopedic. No change in breathing baseline. Clinical suspicion of pulmonary fibrosis.-CT chest ordered. Review of systems: Was done for constitutional, cardiovascular, GI, pulmonary. relevant finding as above Active Medications Acetaminophen (Tylenol Tab) 650 mg PO Q6HR PRN PRN Reason: Fever and/ or Mild Pain Last Admin: 07/02/19 12:18 Dose: 650 mg Documented by: Acetaminophen/Codeine Phosphate (Tylenol #3) 1 each PO Q4HR PRN PRN Reason: MODERATE Pain Last Admin: 07/02/19 17:10 Dose: 1 each Documented by: Albuterol Sulfate (Ventolin Nebulized) 2.5 mg INHALATION RT-Q4H PRN PRN Reason: Shortness Of Breath Apixaban (Eliquis) 5 mg PO BID [facility] Last Admin: 07/02/19 08:29 Dose: 5 mg Documented by: Cholecalciferol (Vitamin D3 (25 Mcg = 1000 Iu)) 1,000 unit PO DAILY [facility] Last Admin: 07/02/19 08:29 Dose: 1,000 unit Documented by: Clonidine (Catapres) 0.1 mg PO BID [facility] Last Admin: 07/02/19 08:29 Dose: 0.1 mg Documented by: Diclofenac Sodium (Voltaren Gel) 4 gm TOPICAL QID [facility] Last Admin: 07/02/19 17:21 Dose: 4 gm Documented by: Ferrous Sulfate (Feosol) 325 mg PO DAILY [facility] Last Admin: 07/02/19 08:29 Dose: 325 mg Documented by: Furosemide (Lasix) 40 mg PO DAILY [facility] Lisinopril/HCTZ (Zestoretic 20-25) 1 each PO DAILY [facility] Last Admin: 07/02/19 08:28 Dose: 1 each Documented by: Insulin Aspart (Novolog) 0 unit SQ ACHS [facility]; Protocol Last Admin: 07/02/19 17:17 Dose: Not Given Documented by: Lactobacillus Acidoph/Bulgaricus (Lactinex) 1 each PO DAILY [facility] Last Admin: 07/02/19 08:29 Dose: 1 each Documented by: Loratadine (Claritin) 10 mg PO DAILY [facility] Last Admin: 07/02/19 08:29 Dose: 10 mg Documented by: Metoprolol Tartrate (Lopressor) 25 mg PO DAILY [facility] Last Admin: 07/02/19 08:28 Dose: 25 mg Documented by: Metoprolol Tartrate (Lopressor) 12.5 mg PO HS [facility] Last Admin: 07/01/19 20:48 Dose: 12.5 mg Documented by: Pantoprazole Sodium (Protonix) 40 mg PO AC-BRKFST [facility] Last Admin: 07/02/19 08:28 Dose: 40 mg Documented by: Physical examination: VITAL SIGNS: 97.6, 52, 15, 137/80, 96% on room air GENERAL: Laying in bed, fake. EYES: Pupils equal. Conjunctiva normal. HEENT: External appearance of nose and ears normal, oral cavity grossly normal. NECK: JVD possibly raise; masses not palpable. HEART: Heart sounds irregular; no edema. LUNGS: Respiratory rate normal; bilateral basal crackles. ABDOMEN: Soft, nontender, liver spleen not palpable, no masses palpable. PSYCH: Alert and oriented x3; mood and affect normal. MUSCULAR skeletal: Swelling of the right knee with some local increased tempe rature evidence of OA especially in the hands INVESTIGATIONS, reviewed in the clinical context: 2-D echo-moderate concentric left hypertrophy, EF 60-65%, moderate aortic stenosis, moderate mitral regurgitation, moderate to severe tricuspid regurgitation, moderate pulmonary hypertension, High-resolution computed tomography scan chest-bilateral pulmonary fibrosis, Previous testing White count 10.9 hemoglobin 14.2 potassium 3.5 creatinine 0.39 Troponin I less than 0.012 proBNP 2009 EKG tracing personally reviewed by me-atrial fibrillation Chest x-ray film personally reviewed by me-venous prominence Assessment: -New diagnosis-extensive bilateral pulmonary fibrosis -Doubt congestive heart failure. -Secondary pulmonary hypertension secondary to bilateral pulmonary fibrosis -Moderate aortic stenosis, nontraumatic -Moderate to severe mitral and tricuspid regurgitation, nontraumatic -Acute right knee osteoarthritis flare up with signs of inflammation -Persistent atrial fibrillation chronically on eliquis -Essential hypertension -[id number] by cardiology. Patient has minimal clinical suspicion of the same. Plan: DC IV Lasix. Consult pulmonary. Await aspiration of left knee. Further workup of pulmonary fibrosis as an outpatient. We will discuss with patient.
[2019-07-02 20:33] LABS: Glucose,Whole Blood 181 mg/dL (75-99)
[2019-07-02] MEDS: METOPROLOL TARTRATE 12.5 MG TAB PO SCH (20:44)
[2019-07-03] MEDS: Acetaminophen-Codeine 300-30mg TAB PO PRN ×3 (01:16→23:49)
[2019-07-03] MEDS: INSULIN ASPART (NovoLOG) 100 UNIT/ML VIAL SQ SCH ×4 (05:43→20:36)
[2019-07-03 05:48] LABS: Glucose,Whole Blood 149 mg/dL (75-99)
[2019-07-03] MEDS: PANTOPRAZOLE 40 MG TABLET PO SCH (06:01)
[2019-07-03] MEDS: FUROSEMIDE 40 MG TAB PO SCH (08:31)
[2019-07-03] MEDS: LISINOPRIL-HCTZ 20-25 MG 1 EACH TAB PO SCH (08:32)
[2019-07-03] MEDS: CHOLECALCIFEROL 1,000 UNIT TAB PO SCH (08:32)
[2019-07-03] MEDS: LORATADINE 10 MG TAB PO SCH (08:32)
[2019-07-03] MEDS: FERROUS SULFATE 325 MG TAB PO SCH (08:32)
[2019-07-03] MEDS: LACTOBACILLUS ACIDOPH & BULGAR 1 EACH PACKET PO SCH (08:32)
[2019-07-03] MEDS: METOPROLOL TARTRATE 25 MG TAB PO SCH ×2 (08:32→08:33)
[2019-07-03] MEDS: APIXABAN 5 MG TAB PO SCH ×2 (08:32→20:19)
[2019-07-03] MEDS: cloNIDine HCL 0.1 MG TAB PO SCH ×2 (08:32→20:19)
[2019-07-03] MEDS: DICLOFENAC SODIUM GEL 100 GM TUBE TOPICAL SCH ×4 (08:33→20:27)
--- NOTE | 2019-07-03 09:58 | P.PN ---
Progress Note - Text Progress Note Date: 07/03/19 Orthopedics: History of present illness: Patient is a pleasant 78-year-old female who is seen and examined at bedside for further evaluation regards to her right knee. She continues to have swelling and pain at the right knee. She's been unable to weight there on the right lower extremity due to her knee pain. She does not have a specific injury to her knee. She states she may been sitting with her legs crossed and fell asleep that way. She is known to have arthritis at her right knee. She is currently being seen and examined by medicine and cardiology. Patient was discussed in detail cardiology this morning. Covid 19 testing had been ordered by cardiology. Those results are pending. Patient does have difficulty with shortness of breath. Patient has had chest x-ray and chest CT imaging with findings. Patient is on Eliquis for anticoagulation. Physical Exam: Patient is awake, alert, and oriented 3 Vital signs stable Adequate chest excursion with deep inspiration and expiration No signs or symptoms of DVT; no calf pain Evidence of generalized swelling about the right knee Pain with palpation over the entire right knee No evidence of significant erythema, bruising, laceration, or obvious sign of infection at the right knee Patient is able to perform active dorsiflexion and plantar flexion on the right lower extremity without difficulty Neurovascular intact right lower extremity Pertinent studies: CT of the chest without contrast taken on 07/02/2019: Course extensive pulmonary interstitial infiltrates with septal thickening consistent with pulmonary fibrosis in which there is slightly more noticeable involvement of the right upper lobe; patchy bronchiectasis X-ray of the right knee taken on 07/01/2019: No acute fracture dislocation; osteoarthritis; calcifications at the suprapatellar bursa with fluid noted Assessment: Right knee pain Right knee swelling Inability ambulate due to right knee pain Osteoarthritis of the right knee Shortness of breath Course extensive pulmonary interstitial infiltrates on CT imaging Paroxysmal atrial fibrillation on long-term anticoagulation Acute on chronic diastolic heart failure Diabetes mellitus Hypertension Dyslipidemia Plan: 1. Patient has been seen and examined at the bedside. Patient has been discussed with Dr. Shawn Patel. Patient continues to experience pain in her right knee. She does have evidence of swelling which is generalized about the right knee. There is no evidence of significant erythema, bruising, laceration, or signs of infection of the right knee. She does not have injury to the right knee. She does have palpable fluid generalized about the right knee. After further discussion with the patient and Dr. Shawn Paetl, we will plan for aspiration of the right knee. Patient has signed a procedural consent and agrees to proceed forward with aspiration of the right knee. 2. Patient will continue be seeing them by other medical providers for her other significant medical conditions
--- NOTE | 2019-07-03 10:01 | P.PN ---
Progress Note - Text Progress Note Date: 07/03/19 (Aspiration of the right knee procedure note) Orthopedics: Procedure note: Consent has been signed by the patient and myself for aspiration of the right knee. Patient agrees to proceed forward with aspiration of the right knee. Patient's right knee is elevated with a pillow placed underneath the right knee. Chucks pad is dressed underneath the right knee. Right knee is prepped with ChloraPrep. Once the ChloraPrep is dry, I inserted a 18-gauge 1-1/2 inch needle into the right knee joint by entering into the inferior lateral joint space. With aspiration performed with a 18-gauge 1-1/2 inch needle in 12 mL syringe, I was unable to aspirate any fluid. I was able to manipulate the needle in a couple different planes without any successful aspiration. I attempted a second aspiration without successful aspiration of fluid. There was a small amount of blood, less than 1cc, from the aspiration sites upon removal of the needle. No evidence of pus or infection. Pressure was applied to the aspiration sites to stop any small bleeding. Band-Aid was placed over the aspiration sites. No significant drainage from the aspiration sites. Patient did have discomfort at the right knee but tolerated the procedure well.
[2019-07-03 12:09] LABS: Glucose,Whole Blood 194 mg/dL (75-99)
--- NOTE | 2019-07-03 12:30 | P.PN ---
Subjective Progress Note Date: 07/03/19 This is 78-year-old female with history of paroxysmal atrial fibrillation, aortic and mitral regurgitation, diabetes, hypertension, hyperlipidemia, follows with Dr. Rosa Urbina in the office. Admitted to the hospital with congestive heart failure. She initially presented to the office with symptoms of shortness of breath. Patient was advised to undergo a chest x- ray which revealed bilateral infiltrates. She was sent to the hospital for further testing which includes Covid 19 testing. Patient also suffered spontaneous swelling to her right knee for which she underwent aspiration procedure this morning. Echocardiogram with Doppler study revealed a preserved LV function with ejection fraction of 60-65%, mild aortic regurg, moderate aortic stenosis, moderate mitral regurg, moderate to severe tricuspid regurg and moderate pulmonary hypertension. Patient was seen and examined this morning, she states she feels mildly short of breath, complaining of some discomfort in her right knee. Blood pressure 112/80 with a heart rate in the 70s to 80s this morning. Continues to be in atrial fibrillation. Objective - Vital Signs Vital signs: Vital Signs Temp 98.6 F 07/03/19 08:00 Pulse 88 07/03/19 11:19 Resp 16 07/03/19 08:00 BP 112/73 07/03/19 08:00 Pulse Ox 94 L 07/03/19 08:00 Intake & Output 07/02/19 07/03/19 07/03/19 18:59 06:59 18:59 Intake Total 240 160 Output Total 300 Balance 240 -300 160 Intake: IV 10 0.9 10 Oral 240 150 Output: Urine 300 - Exam PHYSICAL EXAMINATION: GENERAL: 78-year-old female in no acute distress at the time of my examination HEENT: Head is atraumatic, normocephalic. Pupils equal, round. Sclera anicteric. Conjunctiva are clear. Mucous membranes of the mouth are moist. Neck is supple. There is no elevated jugular venous pressure. No carotid bruit is heard. HEART EXAMINATION: Heart S1 S2 1 systolic ejection murmur is heard CHEST EXAMINATION: Lungs are clear to auscultation and precussion. No chest wall tenderness is noted on palpation or with deep breathing. ABDOMEN: Soft, nontender. Bowel sounds are heard. No organomegaly noted. EXTREMITIES: 2+ peripheral pulses with no evidence of peripheral edema and no calf tenderness noted. Swelling of the right knee noted NEUROLOGIC patient is awake, alert and oriented 3 . . - Labs CBC & Chem 7: 07/01/19 16:13 07/02/19 06:57 Labs: Abnormal Lab Results - Last 24 Hours (Table) 07/02/19 07/02/19 07/03/19 Range/Units 17:15 20:31 05:42 POC Glucose (mg/dL) 124 H 181 H 149 H (75-99) mg/dL 07/03/19 Range/Units 12:07 POC Glucose (mg/dL) 194 H (75-99) mg/dL Microbiology - Last 24 Hours (Table) 07/01/19 16:32 Blood Culture - Preliminary Blood No Growth after 24 hours Assessment and Plan Plan: ASSESSMENT and plan #1 Shortness of breath with evidence of right upper lobe infiltrate and leukocytosis, rule out Covid 19. CTA of the chest showed coarse extensive pulmonary interstitial infiltrates with septal thickening consistent with pulmonary fibrosis. There is slightly more noticeable involvement of the right upper lobe. Patchy bronchiectasis. No suspicious pulmonary mass. #2 No evidence of congestive cardiac failure #3 Paroxysmal atrial fibrillation on mcfp anti-coagulation #4 Valvular heart disease #5 Diabetes mellitus #6 Hypertension #7 Dyslipidemia #8 Arthritis, with spontaneous swelling, status post aspiration this morning Plan From cardiology's perspective, we will follow this patient along with you now on an as-needed basis only, please don't hesitate to call with any questions. DNP note has been reviewed, I agree with a documented findings and plan of care. Patient was seen and examined.
[2019-07-03 16:52] LABS: Glucose,Whole Blood 169 mg/dL (75-99)
[2019-07-03] MEDS: METOPROLOL TARTRATE 12.5 MG TAB PO SCH (17:52)
[2019-07-03] MEDS ORDERED: DILTIAZEM DRIP BOLUS FROM BAG 1 MG SOLN IV ONE (18:05)
[2019-07-03] MEDS ORDERED: DILTIAZEM 125 MG in SODIUM CHLORIDE 0.9% 100 ML IV SCH (18:15)
[2019-07-03 20:01] LABS: Glucose,Whole Blood 223 mg/dL (75-99)
--- NOTE | 2019-07-03 21:32 | P.PN ---
Progress Note - Text Progress Note Date: 07/03/19 Chief Complaint: Right knee pain History of presenting complaint: This is a pleasant 78-year-old patient of Dr. Edvin Lloyd. Chronic stable medical conditions include atrial fibrillation, diabetes, hypertension. Patient for 1 day having increased pain in the right knee. Not sure if she twisted it while sleeping. Also swollen. Trouble walking the same. No fever no chills. Patient has recently diagnosed with atrial fibrillation on eliquis. Being followed by Dr. YOAN Urbina. Patient had some shortness of breath for quite sometimes occasional cough with frothy sputum. Chest x-ray showed some venous prominence. No colored sputum. No fever or chills. Admitted with- acute right knee flare up of osteoarthritis. -treated with voltaren gel. Analgesics.high resolution computed tomography scan of the chest did confirm pulmonary fibrosis. Patient does not have acute CHF.atrial flutter has remained mainly controlled. Today-pain in the right knee is better. Hasn't really been out of bed. Review of systems: Was done for constitutional, cardiovascular, GI, pulmonary. relevant finding as above Active Medications Acetaminophen (Tylenol Tab) 650 mg PO Q6HR PRN PRN Reason: Fever and/ or Mild Pain Last Admin: 07/02/19 12:18 Dose: 650 mg Documented by: Acetaminophen/Codeine Phosphate (Tylenol #3) 1 each PO Q4HR PRN PRN Reason: MODERATE Pain Last Admin: 07/03/19 06:02 Dose: 1 each Documented by: Albuterol Sulfate (Ventolin Nebulized) 2.5 mg INHALATION RT-Q4H PRN PRN Reason: Shortness Of Breath Apixaban (Eliquis) 5 mg PO BID [facility] Last Admin: 07/03/19 20:19 Dose: 5 mg Documented by: Cholecalciferol (Vitamin D3 (25 Mcg = 1000 Iu)) 1,000 unit PO DAILY [facility] Last Admin: 07/03/19 08:32 Dose: 1,000 unit Documented by: Clonidine (Catapres) 0.1 mg PO BID [facility] Last Admin: 07/03/19 20:19 Dose: 0.1 mg Documented by: Diclofenac Sodium (Voltaren Gel) 4 gm TOPICAL QID [facility] Last Admin: 07/03/19 20:27 Dose: 4 gm Documented by: Ferrous Sulfate (Feosol) 325 mg PO DAILY [facility] Last Admin: 07/03/19 08:32 Dose: 325 mg Documented by: Furosemide (Lasix) 40 mg PO DAILY [facility] Last Admin: 07/03/19 08:31 Dose: 40 mg Documented by: Lisinopril/HCTZ (Zestoretic 20-25) 1 each PO DAILY [facility] Last Admin: 07/03/19 08:32 Dose: 1 each Documented by: Diltiazem HCl 125 mg/ Sodium (Chloride) 125 mls @ 5 mls/hr IV .Q24H [facility] Last Admin: 07/03/19 18:22 Dose: 5 mg/hr, 5 mls/hr Documented by: Insulin Aspart (Novolog) 0 unit SQ ACHS [facility]; Protocol Last Admin: 07/03/19 20:36 Dose: 3 unit Documented by: Lactobacillus Acidoph/Bulgaricus (Lactinex) 1 each PO DAILY [facility] Last Admin: 07/03/19 08:32 Dose: 1 each Documented by: Loratadine (Claritin) 10 mg PO DAILY [facility] Last Admin: 07/03/19 08:32 Dose: 10 mg Documented by: Metoprolol Tartrate (Lopressor) 25 mg PO DAILY [facility] Last Admin: 07/03/19 08:33 Dose: 25 mg Documented by: Metoprolol Tartrate (Lopressor) 12.5 mg PO HS [facility] Last Admin: 07/03/19 17:52 Dose: 12.5 mg Documented by: Pantoprazole Sodium (Protonix) 40 mg PO AC-BRKFST [facility] Last Admin: 07/03/19 06:01 Dose: 40 mg Documented by: Physical examination: VITAL SIGNS: 0.7, 100, 18, 139/72, 95% on room air GENERAL: Laying in bed, awake, comfortable. EYES: Pupils equal. Conjunctiva normal. HEENT: External appearance of nose and ears normal, oral cavity grossly normal. NECK: JVD possibly raise; masses not palpable. HEART: Heart sounds irregular; no edema. LUNGS: Respiratory rate normal; bilateral basal crackles. ABDOMEN: Soft, nontender, liver spleen not palpable, no masses palpable. PSYCH: Alert and oriented x3; mood and affect normal. MUSCULAR skeletal: Swelling of the right knee with some local increased temperature evidence of OA especially in the hands INVESTIGATIONS, reviewed in the clinical context: Accu-Cheks noted Previous testing White count 10.9 hemoglobin 14.2 potassium 3.5 creatinine 0.39 Troponin I less than 0.012 proBNP 2009 EKG tracing personally reviewed by me-atrial fibrillation Chest x-ray film personally reviewed by me-venous prominence 2-D echo-moderate concentric left hypertrophy, EF 60-65%, moderate aortic stenosis, moderate mitral regurgitation, moderate to severe tricuspid regurgitation, moderate pulmonary hypertension, High-resolution computed tomography scan chest-bilateral pulmonary fibrosis, Assessment: -New diagnosis-extensive bilateral pulmonary fibrosis -Doubt congestive heart failure. 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 Clinical suspicion low Plan: care discussed with the patient. Benson wrap to right knee.&. To be out of bed. Pulmonary consultation. Hopefully patient can be discharged tomorrow.
[2019-07-04 06:00] LABS: Glucose,Whole Blood 115 mg/dL (75-99)
[2019-07-04 07:09] LABS: African American GFR (CKD) >90 (>60 ml/min/1.73 sqM); Anion Gap 8 mmol/L; Blood Urea Nitrogen 21 mg/dL (7-17); Calcium 9.1 mg/dL (8.4-10.2); Carbon Dioxide 31 mmol/L (22-30); Chloride 94 mmol/L (98-107); Glucose 122 mg/dL (74-99); Non-African American GFR(CKD) >90 (>60 ml/min/1.73 sqM); Potassium 3.5 mmol/L (3.5-5.1); Sodium 133 mmol/L (137-145)
[2019-07-04] MEDS: INSULIN ASPART (NovoLOG) 100 UNIT/ML VIAL SQ SCH ×4 (07:46→21:18)
[2019-07-04] MEDS: PANTOPRAZOLE 40 MG TABLET PO SCH (07:49)
[2019-07-04] MEDS: Acetaminophen-Codeine 300-30mg TAB PO PRN (08:50)
[2019-07-04] MEDS: APIXABAN 5 MG TAB PO SCH ×2 (08:51→23:18)
[2019-07-04] MEDS: LACTOBACILLUS ACIDOPH & BULGAR 1 EACH PACKET PO SCH (08:51)
[2019-07-04] MEDS: LORATADINE 10 MG TAB PO SCH (08:51)
[2019-07-04] MEDS: LISINOPRIL-HCTZ 20-25 MG 1 EACH TAB PO SCH (08:51)
[2019-07-04] MEDS: cloNIDine HCL 0.1 MG TAB PO SCH ×2 (08:51→23:18)
[2019-07-04] MEDS: FERROUS SULFATE 325 MG TAB PO SCH (08:51)
[2019-07-04] MEDS: DICLOFENAC SODIUM GEL 100 GM TUBE TOPICAL SCH ×4 (08:52→23:19)
[2019-07-04] MEDS: CHOLECALCIFEROL 1,000 UNIT TAB PO SCH (08:52)
[2019-07-04] MEDS: FUROSEMIDE 40 MG TAB PO SCH (08:52)
[2019-07-04 11:38] LABS: Glucose,Whole Blood 235 mg/dL (75-99)
[2019-07-04] MEDS: DILTIAZEM ORAL 30 MG TAB PO SCH ×2 (15:22→23:18)
--- NOTE | 2019-07-04 15:27 | CONS ---
CONSULTATION PULMONARY/CRITICAL CARE CONSULTATION: REASON FOR CONSULTATION: Abnormal chest x-ray. HISTORY OF PRESENT ILLNESS: A 78-year-old female who apparently presents to the emergency department with complaints of some leg and knee discomfort. She thinks she maybe twisted her knee or maybe she slept on it the wrong way. I asked her specifically about lung issues including shortness of breath, cough, wheezing, phlegm production. She does have chronic cough which is mostly nonproductive and she is short of breath on exertion, but these have been longstanding symptoms. She tells me that she recently saw her buyer agent who listened to her chest and was concerned about abnormal breath sounds. She recommended that her primary do a chest x-ray. Looking at her chest x-rays and her CT scan that was done here, it appears to me that the patient likely has long-standing interstitial lung disease/pulmonary fibrosis. It does not appear that the patient has acute lung disease. She denies any fever or chills. She is not coughing up any phlegm. Lying in bed, she is completely asymptomatic. She denies any chest pain or pressure. There is no nausea, vomiting, diarrhea, abdominal pain. Her chest x-ray and her CT scans are reviewed. ALLERGIES: Reviewed. She is allergic to PENICILLIN, SULFA ANTIBIOTICS. MEDICAL HISTORY: Includes atrial fibrillation, diabetes, hypertension, and likely underlying interstitial lung disease/pulmonary fibrosis. SURGICAL HISTORY: Includes shoulder surgery, hysterectomy. SOCIAL HISTORY: Negative for tobacco use. No illicit drug use or alcohol use. FAMILY HISTORY: Noncontributory. Both mother and father were healthy. REVIEW OF SYSTEMS: CONSTITUTIONAL negative., NEUROLOGIC negative. HEENT negative. CARDIOVASCULAR negative. PULMONARY: Chronic symptoms of shortness of breath on exertion and dry nonproductive cough. GI negative. negative. RHEUMATOLOGIC negative. IMMUNOLOGIC negative. ENDOCRINOLOGIC negative. DERMATOLOGIC negative. MUSCULOSKELETAL is positive for leg pain or discomfort. PHYSICAL EXAMINATION: VITAL SIGNS: Current vital signs are reviewed. Temperature is 98.3, heart rate 93, respiratory rate 20, blood pressure 133/63. Mean 86, room air saturation 94%. She has been completely afebrile since she has been here from the 25th. Her highest temperature is 98.9. GENERAL: She appears in no acute distress. No respiratory distress. She is not on any supplemental oxygen. HEENT: Examination is grossly unremarkable. Mucous membranes are moist. NECK: Supple. Full range of motion. No adenopathy or thyromegaly. Neck veins are flat. CARDIOVASCULAR: Examination reveals regular rhythm and rate. S1, S2 normal. No S3, S4, or murmur. LUNGS: Reveal some bibasilar crackles. They are Velcro in nature. ABDOMEN: Soft. Bowel sounds are heard. EXTREMITIES are intact. No cyanosis, clubbing, or edema. SKIN: Without rash. NEUROLOGIC: Examination is nonfocal. LABS: Reviewed. White count 10.9, hemoglobin 14.2, hematocrit 44.1, platelet count 316,000. PT/INR PTT normal. Sodium 133, potassium 3.5, chloride 94, CO2 31, anion gap is 8. BUN and creatinine were 21 and 0.46. The rest of the labs look okay. Troponin was less than 0.012. N-terminal proBNP 2009. Procalcitonin level 0.18. Apparently she was swabbed for [place] virus infection. That is pending. Influenza A and B studies are negative. X-RAY: Chest x-ray and CT scans are reviewed. CT scan from July 01 suggests interstitial lung disease and pulmonary fibrosis, a bit more significant in the right upper lobe. This corresponds to what we are seeing on the chest x-ray. ASSESSMENT: 1. Doubt active pulmonary infection and/or Covid-19 infection. 2. Chronic shortness of breath and dry nonproductive cough, likely related to the patient's likely diagnosis of interstitial lung disease/pulmonary fibrosis. 3. History of atrial fibrillation. 4. Diabetes mellitus. 5. History of hypertension. PLAN: From my perspective, the patient could be discharged home. I do not suspect she has an active infection at this time. Her shortness of breath and cough are related to her chronic interstitial disease. She has never had a fever since she has been here in the hospital. She should follow up with us in the office. She will need a 6 minute walk distance and complete pulmonary function test. This can certainly be done once this pandemic has subsided. MMODL / IJN: [id number] /
--- NOTE | 2019-07-04 15:43 | P.PN ---
Progress Note - Text Progress Note Date: 07/04/19 Chief Complaint: Right knee pain History of presenting complaint: This is a pleasant 78-year-old patient of Dr. Edvin Lloyd. Chronic stable medical conditions include atrial fibrillation, diabetes, hypertension. Patient for 1 day having increased pain in the right knee. Not sure if she twisted it while sleeping. Also swollen. Trouble walking the same. No fever no chills. Patient has recently diagnosed with atrial fibrillation on eliquis. Being followed by Dr. YOAN Urbina. Patient had some shortness of breath for quite sometimes occasional cough with frothy sputum. Chest x-ray showed some venous prominence. No colored sputum. No fever or chills. Admitted with- acute right knee flare up of osteoarthritis. -treated with voltaren gel. Analgesics.high resolution computed tomography scan of the chest did confirm pulmonary fibrosis. Patient does not have acute CHF.atrial flutter has remained mainly controlled. Today-no new issues. Some pain in the right knee. Feeling stable. Review of systems: Was done for constitutional, cardiovascular, GI, pulmonary. relevant finding as above Active Medications Acetaminophen (Tylenol Tab) 650 mg PO Q6HR PRN PRN Reason: Fever and/ or Mild Pain Last Admin: 07/02/19 12:18 Dose: 650 mg Documented by: Acetaminophen/Codeine Phosphate (Tylenol #3) 1 each PO Q4HR PRN PRN Reason: MODERATE Pain Last Admin: 07/04/19 08:50 Dose: 1 each Documented by: Albuterol Sulfate (Ventolin Nebulized) 2.5 mg INHALATION RT-Q4H PRN PRN Reason: Shortness Of Breath Apixaban (Eliquis) 5 mg PO BID [facility] Last Admin: 07/04/19 08:51 Dose: 5 mg Documented by: Cholecalciferol (Vitamin D3 (25 Mcg = 1000 Iu)) 1,000 unit PO DAILY [facility] Last Admin: 07/04/19 08:52 Dose: 1,000 unit Documented by: Clonidine (Catapres) 0.1 mg PO BID [facility] Last Admin: 07/04/19 08:51 Dose: 0.1 mg Documented by: Diclofenac Sodium (Voltaren Gel) 4 gm TOPICAL QID [facility] Last Admin: 07/04/19 11:46 Dose: 4 gm Documented by: Diltiazem HCl (Cardizem Oral) 30 mg PO TID [facility] Last Admin: 07/04/19 15:22 Dose: 30 mg Documented by: Ferrous Sulfate (Feosol) 325 mg PO DAILY [facility] Last Admin: 07/04/19 08:51 Dose: 325 mg Documented by: Furosemide (Lasix) 40 mg PO DAILY [facility] Last Admin: 07/04/19 08:52 Dose: 40 mg Documented by: Lisinopril/HCTZ (Zestoretic 20-25) 1 each PO DAILY [facility] Last Admin: 07/04/19 08:51 Dose: 1 each Documented by: Insulin Aspart (Novolog) 0 unit SQ ACHS [facility]; Protocol Last Admin: 07/04/19 11:46 Dose: 3 unit Documented by: Lactobacillus Acidoph/Bulgaricus (Lactinex) 1 each PO DAILY [facility] Last Admin: 07/04/19 08:51 Dose: 1 each Documented by: Loratadine (Claritin) 10 mg PO DAILY [facility] Last Admin: 07/04/19 08:51 Dose: 10 mg Documented by: Metoprolol Tartrate (Lopressor) 25 mg PO DAILY [facility] Last Admin: 07/03/19 08:33 Dose: 25 mg Documented by: Metoprolol Tartrate (Lopressor) 12.5 mg PO HS [facility] Last Admin: 07/03/19 17:52 Dose: 12.5 mg Documented by: Pantoprazole Sodium (Protonix) 40 mg PO AC-BRKFST [facility] Last Admin: 07/04/19 07:49 Dose: Not Given Documented by: Physical examination: VITAL SIGNS: 98.3, 93, 20, 133/63, 94% on room air GENERAL: Sitting up in a recliner, comfortable EYES: Pupils equal. Conjunctiva normal. HEENT: External appearance of nose and ears normal, oral cavity grossly normal. NECK: JVD possibly raise; masses not palpable. HEART: Heart sounds irregular; no edema. LUNGS: Respiratory rate normal; bilateral basal crackles. ABDOMEN: Soft, nontender, liver spleen not palpable, no masses palpable. PSYCH: Alert and oriented x3; mood and affect normal. MUSCULAR skeletal: Benson wrap on the right knee, evidence of OA especially in the hands INVESTIGATIONS, reviewed in the clinical context: Sodium 133 potassium 3.5 creatinine 0.46 Previous testing White count 10.9 hemoglobin 14.2 potassium 3.5 creatinine 0.39 Troponin I less than 0.012 proBNP 2009 EKG tracing personally reviewed by me-atrial fibrillation Chest x-ray film personally reviewed by me-venous prominence 2-D echo-moderate concentric left hypertrophy, EF 60-65%, moderate aortic stenosis, moderate mitral regurgitation, moderate to severe tricuspid regurgitation, moderate pulmonary hypertension, High-resolution computed tomography scan chest-bilateral pulmonary fibrosis, Assessment: -New diagnosis-extensive bilateral pulmonary fibrosis -Doubt congestive heart failure. 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 Clinical suspicion low Plan: Patient now pending to go to rehab. Questions were answered. The patient wants to see the orthopedic team again for a steroid injection.
[2019-07-04 16:45] LABS: Glucose,Whole Blood 241 mg/dL (75-99)
[2019-07-04 20:16] LABS: Glucose,Whole Blood 235 mg/dL (75-99)
[2019-07-04] MEDS: METOPROLOL TARTRATE 12.5 MG TAB PO SCH (23:18)
[2019-07-05] MEDS: Acetaminophen-Codeine 300-30mg TAB PO PRN ×3 (01:10→22:28)
[2019-07-05 05:44] LABS: Glucose,Whole Blood 151 mg/dL (75-99)
[2019-07-05] MEDS: INSULIN ASPART (NovoLOG) 100 UNIT/ML VIAL SQ SCH ×4 (07:02→21:05)
[2019-07-05] MEDS: PANTOPRAZOLE 40 MG TABLET PO SCH (07:05)
[2019-07-05] MEDS: APIXABAN 5 MG TAB PO SCH ×2 (09:35→21:06)
[2019-07-05] MEDS: cloNIDine HCL 0.1 MG TAB PO SCH ×2 (09:35→21:06)
[2019-07-05] MEDS: CHOLECALCIFEROL 1,000 UNIT TAB PO SCH (09:35)
[2019-07-05] MEDS: FERROUS SULFATE 325 MG TAB PO SCH (09:35)
[2019-07-05] MEDS: FUROSEMIDE 40 MG TAB PO SCH (09:36)
[2019-07-05] MEDS: DILTIAZEM ORAL 30 MG TAB PO SCH ×3 (09:36→22:28)
[2019-07-05] MEDS: DICLOFENAC SODIUM GEL 100 GM TUBE TOPICAL SCH ×4 (09:36→22:00)
[2019-07-05] MEDS: METOPROLOL TARTRATE 25 MG TAB PO SCH (09:37)
[2019-07-05] MEDS: LISINOPRIL-HCTZ 20-25 MG 1 EACH TAB PO SCH (09:37)
[2019-07-05] MEDS: LORATADINE 10 MG TAB PO SCH (09:37)
[2019-07-05] MEDS: LACTOBACILLUS ACIDOPH & BULGAR 1 EACH PACKET PO SCH (09:37)
[2019-07-05 12:09] LABS: Glucose,Whole Blood 231 mg/dL (75-99)
[2019-07-05] MEDS ORDERED: HYDROcodone/APAP 5-325MG 1 EACH TAB PO ONE (16:03)
--- NOTE | 2019-07-05 16:33 | P.PN ---
Progress Note - Text Progress Note Date: 07/05/19 Chief Complaint: Right knee pain History of presenting complaint: This is a pleasant 78-year-old patient of Dr. Edvin Lloyd. Chronic stable medical conditions include atrial fibrillation, diabetes, hypertension. Patient for 1 day having increased pain in the right knee. Not sure if she twisted it while sleeping. Also swollen. Trouble walking the same. No fever no chills. Patient has recently diagnosed with atrial fibrillation on eliquis. Being followed by Dr. YOAN Urbina. Patient had some shortness of breath for quite sometimes occasional cough with frothy sputum. Chest x-ray showed some venous prominence. No colored sputum. No fever or chills. Admitted with- acute right knee flare up of osteoarthritis. -treated with voltaren gel. Analgesics.high resolution computed tomography scan of the chest did confirm pulmonary fibrosis. Patient does not have acute CHF.atrial flutter has remained mainly controlled. Today-Right knee pain better. Tolerating a diet. Breathing at baseline. Review of systems: Was done for constitutional, cardiovascular, GI, pulmonary. relevant finding as above Active Medications Acetaminophen (Tylenol Tab) 650 mg PO Q6HR PRN PRN Reason: Fever and/ or Mild Pain Last Admin: 07/02/19 12:18 Dose: 650 mg Documented by: Acetaminophen/Codeine Phosphate (Tylenol #3) 1 each PO Q4HR PRN PRN Reason: MODERATE Pain Last Admin: 07/05/19 10:53 Dose: 1 each Documented by: Apixaban (Eliquis) 5 mg PO BID [facility] Last Admin: 07/05/19 09:35 Dose: 5 mg Documented by: Cholecalciferol (Vitamin D3 (25 Mcg = 1000 Iu)) 1,000 unit PO DAILY [facility] Last Admin: 07/05/19 09:35 Dose: 1,000 unit Documented by: Clonidine (Catapres) 0.1 mg PO BID [facility] Last Admin: 07/05/19 09:35 Dose: 0.1 mg Documented by: Diclofenac Sodium (Voltaren Gel) 4 gm TOPICAL QID [facility] Last Admin: 07/05/19 12:32 Dose: 4 gm Documented by: Diltiazem HCl (Cardizem Oral) 30 mg PO TID [facility] Last Admin: 07/05/19 15:17 Dose: 30 mg Documented by: Ferrous Sulfate (Feosol) 325 mg PO DAILY [facility] Last Admin: 07/05/19 09:35 Dose: 325 mg Documented by: Furosemide (Lasix) 40 mg PO DAILY [facility] Last Admin: 07/05/19 09:36 Dose: 40 mg Documented by: Lisinopril/HCTZ (Zestoretic 20-25) 1 each PO DAILY [facility] Last Admin: 07/05/19 09:37 Dose: 1 each Documented by: Insulin Aspart (Novolog) 0 unit SQ ACHS [facility]; Protocol Last Admin: 07/05/19 12:32 Dose: 3 unit Documented by: Lactobacillus Acidoph/Bulgaricus (Lactinex) 1 each PO DAILY [facility] Last Admin: 07/05/19 09:37 Dose: 1 each Documented by: Loratadine (Claritin) 10 mg PO DAILY [facility] Last Admin: 07/05/19 09:37 Dose: 10 mg Documented by: Metoprolol Tartrate (Lopressor) 25 mg PO DAILY [facility] Last Admin: 07/05/19 09:37 Dose: 25 mg Documented by: Metoprolol Tartrate (Lopressor) 12.5 mg PO HS [facility] Last Admin: 07/04/19 23:18 Dose: 12.5 mg Documented by: Pantoprazole Sodium (Protonix) 40 mg PO -BRKFST [facility] Last Admin: 07/05/19 07:05 Dose: 40 mg Documented by: Physical examination: VITAL SIGNS: 97.6, 82, 14, 101/53, 95% on room air GENERAL: Propped up in bed, comfortable EYES: Pupils equal. Conjunctiva normal. HEENT: External appearance of nose and ears normal, oral cavity grossly normal. Decreased hearing-chronic NECK: JVD possibly raise; masses not palpable. HEART: Heart sounds irregular; no edema. LUNGS: Respiratory rate normal; bilateral basal crackles. ABDOMEN: Soft, nontender, liver spleen not palpable, no masses palpable. PSYCH: Alert and oriented x3; mood and affect normal. MUSCULAR skeletal: Benson wrap on the right knee, evidence of OA especially in the hands INVESTIGATIONS, reviewed in the clinical context: Sodium 133 potassium 3.5 creatinine 0.46 Previous testing White count 10.9 hemoglobin 14.2 potassium 3.5 creatinine 0.39 Troponin I less than 0.012 proBNP 2009 EKG tracing personally reviewed by me-atrial fibrillation Chest x-ray film personally reviewed by me-venous prominence 2-D echo-moderate concentric left hypertrophy, EF 60-65%, moderate aortic stenosis, moderate mitral regurgitation, moderate to severe tricuspid regurgitation, moderate pulmonary hypertension, High-resolution computed tomography scan chest-bilateral pulmonary fibrosis, Assessment: -New diagnosis-extensive bilateral pulmonary fibrosis -No congestive heart failure. 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 Patient continued to go to the [facility]. Tomorrow. Discussed with patient.
--- NOTE | 2019-07-05 16:45 | PN ---
PROGRESS NOTE PULMONARY/CRITICAL PROGRESS NOTE: DATE OF SERVICE: July 05, 2019 78-year-old female who I saw yesterday in consultation. I doubt at that time that she had any active pulmonary infection and/or Covid-19 infection. She does have chronic shortness of breath and dry nonproductive cough that had been present for many months and years. Based on her chest x-ray and CT scan, I suspect that she has interstitial lung disease/pulmonary fibrosis. Anyway, she is not acting infected. She denies any fever or chills at this time. She does have a history of atrial fibrillation, diabetes, and essential hypertension. She presented with complaints of knee and leg discomfort. PHYSICAL EXAMINATION: VITAL SIGNS: Current vital signs are reviewed. Temperature 97.6, heart rate 82, respiratory rate 14, blood pressure 101/53 mean 69, room air saturation 95%. T-max is 98.9. GENERAL: Appears in no acute distress. HEENT: Examination is grossly unremarkable. Mucous membranes are moist. No nasal O2 noted. NECK: Supple. Full range of motion. No adenopathy or thyromegaly. Neck veins are flat. CARDIOVASCULAR: Examination reveals regular rhythm and rate. S1, S2 normal. No S3, S4, or murmur. LUNGS: Reveal some bibasilar crackles. They are Velcro in nature. She is not particularly restricted in her breathing. I do not hear any rhonchi or wheezes. ABDOMEN: Soft. Bowel sounds are heard. EXTREMITIES are intact. No cyanosis, clubbing, or edema. SKIN: Without rash. NEUROLOGIC: Examination is brief but nonfocal. The patient apparently was swabbed for coronavirus infection. Apparently her studies are negative. Medications are reviewed. The patient does have an albuterol inhaler ordered. Likely does not need it. ASSESSMENT: 1. Doubt active pulmonary infection and/or Covid-19 infection. 2. Shortness of breath, chronic, with dry nonproductive cough, likely related to the radiographic findings of interstitial lung disease/pulmonary fibrosis. 3. History of atrial fibrillation. 4. History of diabetes mellitus. 5. History of hypertension. PLAN: The patient seems to be doing relatively well. We do want her to follow up in the office so that we can do a 6 minute walk distance and a pulmonary function test to better define the physiologic characteristics of her disease. Again, I suspect she has restrictive lung disease secondary to pulmonary fibrosis and not active infection at this time. Her symptoms are not consistent with that. MMODL / IJN: [id number] /
[2019-07-05 17:04] LABS: Glucose,Whole Blood 176 mg/dL (75-99)
[2019-07-05 20:10] LABS: Glucose,Whole Blood 212 mg/dL (75-99)
[2019-07-05] MEDS: METOPROLOL TARTRATE 12.5 MG TAB PO SCH (21:06)
[2019-07-06 06:05] LABS: Glucose,Whole Blood 124 mg/dL (75-99)
[2019-07-06] MEDS: INSULIN ASPART (NovoLOG) 100 UNIT/ML VIAL SQ SCH ×4 (06:41→21:25)
[2019-07-06] MEDS: PANTOPRAZOLE 40 MG TABLET PO SCH (06:42)
[2019-07-06] MEDS: Acetaminophen-Codeine 300-30mg TAB PO PRN ×2 (09:33→23:01)
[2019-07-06] MEDS: DICLOFENAC SODIUM GEL 100 GM TUBE TOPICAL SCH ×4 (09:34→21:16)
[2019-07-06] MEDS: APIXABAN 5 MG TAB PO SCH ×2 (09:34→21:15)
[2019-07-06] MEDS: cloNIDine HCL 0.1 MG TAB PO SCH (09:34)
[2019-07-06] MEDS: CHOLECALCIFEROL 1,000 UNIT TAB PO SCH (09:34)
[2019-07-06] MEDS: LORATADINE 10 MG TAB PO SCH (09:34)
[2019-07-06] MEDS: METOPROLOL TARTRATE 25 MG TAB PO SCH ×2 (09:35→21:18)
[2019-07-06] MEDS: FERROUS SULFATE 325 MG TAB PO SCH (09:35)
[2019-07-06] MEDS: LISINOPRIL-HCTZ 20-25 MG 1 EACH TAB PO SCH (09:35)
[2019-07-06] MEDS: LACTOBACILLUS ACIDOPH & BULGAR 1 EACH PACKET PO SCH (09:35)
[2019-07-06] MEDS: DILTIAZEM ORAL 30 MG TAB PO SCH ×3 (09:35→23:28)
[2019-07-06] MEDS: FUROSEMIDE 40 MG TAB PO SCH (09:35)
[2019-07-06 11:55] LABS: Glucose,Whole Blood 203 mg/dL (75-99)
[2019-07-06] MEDS: LEVOFLOXACIN 750 MG TAB PO SCH (12:02)
--- NOTE | 2019-07-06 13:14 | P.PN ---
Subjective Progress Note Date: 07/06/19 On 07/06/2019 patient seen in follow-up on selective care unit. She is awake and alert, in no acute distress, denies any shortness of breath, she is on room air her pulse ox is 95%, hemodynamically stable, respirations are non-labored, no wheezing, no rhonchi, she is afebrile. She is complaining of a pain in her right knee which is Benson wrapped, orthopedic service is following, and patient had an attempted right knee aspiration however it was unsuccessful. And patient is being treated conservatively with Benson wrap, extremity elevation. Sputum culture showed gram-negative bacilli, and we'll start the patient on Levaquin for empiric antibiotic coverage, no acute events overnight, her coronavirus test came back negative. Objective - Vital Signs Vital signs: Vital Signs Temp 98.5 F 07/06/19 08:00 Pulse 93 07/06/19 08:00 Resp 18 07/06/19 08:00 BP 131/59 07/06/19 08:00 Pulse Ox 95 07/06/19 08:00 Intake & Output 07/05/19 07/06/19 07/06/19 18:59 06:59 18:59 Intake Total 720 240 Output Total 600 880 500 Balance 120 -880 -260 Weight 69.9 kg Intake: Oral 720 240 Output: Urine 600 880 500 Other: Voiding Method Toilet Toilet # Voids 0 # Bowel Movements 1 - Exam GENERAL EXAM: Alert, awake, 78-year-old white female, on room air with a pulse ox of 96%, comfortable in no apparent distress. HEAD: Normocephalic/atraumatic. EYES: Normal reaction of pupils, equal size. Conjunctiva pink, sclera white. NOSE: Clear with pink turbinates. THROAT: No erythema or exudates. NECK: No masses, no JVD, no thyroid enlargement, no adenopathy. CHEST: No chest wall deformity. Symmetrical expansion. LUNGS: Equal air entry with no crackles, wheeze, rhonchi or dullness. CVS: Regular rate and rhythm, normal S1 and S2, no gallops, no murmurs, no rubs ABDOMEN: Soft, nontender. No hepatosplenomegaly, normal bowel sounds, no gu arding or rigidity. EXTREMITIES: No clubbing, right knee is Benson wrapped, is tender, with limited ran ge of motion, orthopedic service is following no cyanosis, 2+ pulses and upper and lower extremities. MUSCULOSKELETAL: Muscle strength and tone normal. SPINE: No scoliosis or deformity SKIN: No rashes CENTRAL NERVOUS SYSTEM: Alert and oriented -3. No focal deficits, tone is normal in all 4 extremities. PSYCHIATRIC: Alert and oriented -3. Appropriate affect. Intact judgment and insight. - Labs CBC & Chem 7: 07/01/19 16:13 07/04/19 05:55 Labs: Abnormal Lab Results - Last 24 Hours (Table) 07/05/19 07/05/19 07/06/19 Range/Units 17:03 20:08 06:03 POC Glucose (mg/dL) 176 H 212 H 124 H (75-99) mg/dL 07/06/19 Range/Units 11:35 POC Glucose (mg/dL) 203 H (75-99) mg/dL Microbiology - Last 24 Hours (Table) 07/04/19 09:18 Gram Stain - Final Sputum Sputum Culture - Preliminary Gram Neg Bacilli 07/01/19 16:32 Blood Culture - Preliminary Blood No Growth after 96 hours Assessment and Plan Plan: Assessment: #1. Dyspnea, with the possibility of COVID 19 ruled out, improved with medical treatment #2. Possibility of gram-negative pulmonary infection based on the positive sputum culture for gram-negative bacilli #3. Interstitial lung disease/pulmonary fibrosis, new diagnoses #4. History of atrial fibrillation #5. History of diabetes mellitus type 2 #6. History of hypertension #7. Right knee pain, related to acute osteoarthritis exacerbation, orthopedic service is following Plan: We will add Levaquin for possibility of pulmonary infection, clinically patient is stable, no worsening dyspnea, she is on room air, no fever or chills, COVID 19 has been ruled out. Weightbearing status per orthopedic surgery, physical therapy, patient can be considered for discharge home once cleared by repeated surgery and the attending I performed a history & physical examination of the patient and discussed their management with my nurse practitioner, Ibeth Ward. I reviewed the nurse practitioner's note and agree with the documented findings and plan of care. Lung sounds are positive for limited crackles at the bases. The findings and the impression was discussed with the patient. I attest to the documentation by the nurse practitioner. Time with Patient: Less than 30
[2019-07-06 17:03] LABS: Glucose,Whole Blood 122 mg/dL (75-99)
[2019-07-06 21:24] LABS: Glucose,Whole Blood 165 mg/dL (75-99)
--- NOTE | 2019-07-06 22:23 | P.PN ---
Progress Note - Text Progress Note Date: 07/06/19 Chief Complaint: Right knee pain History of presenting complaint: This is a pleasant 78-year-old patient of Dr. Edvin Lloyd. Chronic stable medical conditions include atrial fibrillation, diabetes, hypertension. Patient for 1 day having increased pain in the right knee. Not sure if she twisted it while sleeping. Also swollen. Trouble walking the same. No fever no chills. Patient has recently diagnosed with atrial fibrillation on eliquis. Being followed by Dr. YOAN Urbina. Patient had some shortness of breath for quite sometimes occasional cough with frothy sputum. Chest x-ray showed some venous prominence. No colored sputum. No fever or chills. Admitted with- acute right knee flare up of osteoarthritis. -treated with voltaren gel. Analgesics.high resolution computed tomography scan of the chest did confirm pulmonary fibrosis. Patient does not have acute CHF.atrial flutter has remained mainly controlled. Today-some right knee pain. Otherwise no change. Awaiting authorization to go to inpatient rehab. Active Medications Acetaminophen (Tylenol Tab) 650 mg PO Q6HR PRN PRN Reason: Fever and/ or Mild Pain Last Admin: 07/02/19 12:18 Dose: 650 mg Documented by: Acetaminophen/Codeine Phosphate (Tylenol #3) 1 each PO Q4HR PRN PRN Reason: MODERATE Pain Last Admin: 07/06/19 09:33 Dose: 1 each Documented by: Apixaban (Eliquis) 5 mg PO BID [facility] Last Admin: 07/06/19 21:15 Dose: 5 mg Documented by: Cholecalciferol (Vitamin D3 (25 Mcg = 1000 Iu)) 1,000 unit PO DAILY [facility] Last Admin: 07/06/19 09:34 Dose: 1,000 unit Documented by: Diclofenac Sodium (Voltaren Gel) 4 gm TOPICAL QID [facility] Last Admin: 07/06/19 21:16 Dose: 4 gm Documented by: Diltiazem HCl (Cardizem Oral) 30 mg PO TID [facility] Last Admin: 07/06/19 15:18 Dose: Not Given Documented by: Ferrous Sulfate (Feosol) 325 mg PO DAILY [facility] Last Admin: 07/06/19 09:35 Dose: 325 mg Documented by: Furosemide (Lasix) 40 mg PO DAILY [facility] Last Admin: 07/06/19 09:35 Dose: 40 mg Documented by: Lisinopril/HCTZ (Zestoretic 20-25) 1 each PO DAILY [facility] Last Admin: 07/06/19 09:35 Dose: 1 each Documented by: Insulin Aspart (Novolog) 0 unit SQ ACHS [facility]; Protocol Last Admin: 07/06/19 21:25 Dose: 1 unit Documented by: Lactobacillus Acidoph/Bulgaricus (Lactinex) 1 each PO DAILY [facility] Last Admin: 07/06/19 09:35 Dose: 1 each Documented by: Levofloxacin (Levaquin) 750 mg PO DAILY@1200 [facility] Last Admin: 07/06/19 12:02 Dose: 750 mg Documented by: Loratadine (Claritin) 10 mg PO DAILY [facility] Last Admin: 07/06/19 09:34 Dose: 10 mg Documented by: Metoprolol Tartrate (Lopressor) 25 mg PO BID [facility] Last Admin: 07/06/19 21:18 Dose: 25 mg Documented by: Pantoprazole Sodium (Protonix) 40 mg PO AC-BRKFST [facility] Last Admin: 07/06/19 06:42 Dose: 40 mg Documented by: Physical examination: VITAL SIGNS: 98.1, 52, 16, 8451, 97% on room air repeat blood pressure 160 7 GENERAL: Propped up in bed, comfortable EYES: Pupils equal. Conjunctiva normal. HEENT: External appearance of nose and ears normal, oral cavity grossly normal. Decreased hearing-chronic NECK: JVD possibly raise; masses not palpable. HEART: Heart sounds irregular; no edema. LUNGS: Respiratory rate normal; bilateral basal crackles. ABDOMEN: Soft, nontender, liver spleen not palpable, no masses palpable. PSYCH: Alert and oriented x3; mood and affect normal. MUSCULAR skeletal: Benson wrap on the right knee, evidence of OA especially in the hands INVESTIGATIONS, reviewed in the clinical context: Sodium 133 potassium 3.5 creatinine 0.46 Previous testing White count 10.9 hemoglobin 14.2 potassium 3.5 creatinine 0.39 Troponin I less than 0.012 proBNP 2009 EKG tracing personally reviewed by me-atrial fibrillation Chest x-ray film personally reviewed by me-venous prominence 2-D echo-moderate concentric left hypertrophy, EF 60-65%, moderate aortic stenosis, moderate mitral regurgitation, moderate to severe tricuspid regurgitation, moderate pulmonary hypertension, High-resolution computed tomography scan chest-bilateral pulmonary fibrosis, Assessment: -New diagnosis-extensive bilateral pulmonary fibrosis -Hypotension. -No congestive heart failure. 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 Discussed with hospice social worker. No discharge day. Catapres be discontinued. Change Lopressor to 25 by mouth twice a day. Levaquin added by pulmonary. Continue current medication treatment plan
[2019-07-07 07:09] LABS: Glucose,Whole Blood 117 mg/dL (75-99)
[2019-07-07] MEDS: INSULIN ASPART (NovoLOG) 100 UNIT/ML VIAL SQ SCH ×2 (07:35→12:08)
[2019-07-07 07:40] VITALS: RESP 15
[2019-07-07] MEDS: APIXABAN 5 MG TAB PO SCH (08:40)
[2019-07-07] MEDS: DILTIAZEM ORAL 30 MG TAB PO SCH (08:40)
[2019-07-07] MEDS: FUROSEMIDE 40 MG TAB PO SCH (08:40)
[2019-07-07] MEDS: LACTOBACILLUS ACIDOPH & BULGAR 1 EACH PACKET PO SCH (08:40)
[2019-07-07] MEDS: LORATADINE 10 MG TAB PO SCH (08:40)
[2019-07-07] MEDS: CHOLECALCIFEROL 1,000 UNIT TAB PO SCH (08:41)
[2019-07-07] MEDS: FERROUS SULFATE 325 MG TAB PO SCH (08:41)
[2019-07-07] MEDS: PANTOPRAZOLE 40 MG TABLET PO SCH (08:41)
[2019-07-07] MEDS: LISINOPRIL-HCTZ 20-25 MG 1 EACH TAB PO SCH (08:41)
[2019-07-07] MEDS: METOPROLOL TARTRATE 25 MG TAB PO SCH (08:41)
[2019-07-07] MEDS: DICLOFENAC SODIUM GEL 100 GM TUBE TOPICAL SCH ×2 (08:45→12:08)
[2019-07-07] MEDS: Acetaminophen-Codeine 300-30mg TAB PO PRN (09:06)
[2019-07-07 11:20] VITALS: BMI 25.6
[2019-07-07 11:51] LABS: Glucose,Whole Blood 181 mg/dL (75-99)
[2019-07-07] MEDS: LEVOFLOXACIN 750 MG TAB PO SCH (12:08)
--- NOTE | 2019-07-07 13:27 | P.PN ---
Subjective Progress Note Date: 07/07/19 Principal diagnosis: Dyspnea, interstitial lung disease/pulmonary fibrosis with right knee pain with osteoarthritis The patient is seen today 07/07/2019 in follow-up on the regular medical floor. She is resting comfortably in bed. Awake and alert in no acute distress. Denies any worsening shortness of breath, cough or congestion. She is maintaining O2 saturations up to 100% on room air. She's afebrile. Hemodynamically stable. Sputum culture did come back positive for pseudomonas fluorescens/putida. She is initiated on Levaquin. Anticoagulated with Eliquis. Objective - Vital Signs Vital signs: Vital Signs Temp 98.3 F 07/07/19 07:00 Pulse 91 07/07/19 07:00 Resp 15 07/07/19 07:00 BP 131/75 07/07/19 07:00 Pulse Ox 96 07/07/19 07:00 Intake & Output 07/06/19 07/07/19 07/07/19 18:59 06:59 18:59 Intake Total 1320 300 480 Output Total 1452 801 Balance -132 -501 480 Weight 69.9 kg Intake: Oral 1320 300 480 Output: Urine 1450 800 Stool 2 0 Urine/Stool Mix 1 Other: Voiding Method Toilet Toilet # Voids 0 1 # Bowel Movements 1 - Exam GENERAL EXAM: Alert, pleasant 78-year-old female patient, on room air, comfortable in no apparent distress. HEAD: Normocephalic. EYES: Normal reaction of pupils, equal size. NOSE: Clear with pink turbinates. THROAT: No erythema or exudates. NECK: No masses, no JVD. CHEST: No chest wall deformity. LUNGS: Equal air entry with coarse crackles in the posterior bases. CVS: S1 and S2 normal with no audible murmur, regular rhythm. ABDOMEN: No hepatosplenomegaly, normal bowel sounds, no guarding or rigidity. SPINE: No scoliosis or deformity SKIN: No rashes CENTRAL NERVOUS SYSTEM: No focal deficits, tone is normal in all 4 extremities. EXTREMITIES: There is no peripheral edema. No clubbing, no cyanosis. Peripheral pulses are intact. - Labs CBC & Chem 7: 07/01/19 16:13 07/04/19 05:55 Labs: Abnormal Lab Results - Last 24 Hours (Table) 07/06/19 07/06/19 07/07/19 Range/Units 16:52 21:22 07:07 POC Glucose (mg/dL) 122 H 165 H 117 H (75-99) mg/dL 07/07/19 Range/Units 11:48 POC Glucose (mg/dL) 181 H (75-99) mg/dL Microbiology - Last 24 Hours (Table) 07/04/19 09:18 Gram Stain - Final Sputum Sputum Culture - Final Pseudomonas fluorescens/putida 07/01/19 16:32 Blood Culture - Preliminary Blood No Growth after 120 hours Assessment and Plan Assessment: #1. Dyspnea, with the possibility of COVID 19 ruled out, improved with medical treatment #2. Acute right upper lobe pneumonia with positive sputum culture for sputum Pseudomonas fluorescens #3. Interstitial lung disease/pulmonary fibrosis, new diagnoses #4. History of atrial fibrillation #5. History of diabetes mellitus type 2 #6. History of hypertension #7. Right knee pain, related to acute osteoarthritis exacerbation, orthopedic service is following Plan: The patient was seen and evaluated by Dr. Bautista Pseudomonas fluorescence in the sputum Continue Odalis Continue to follow I, the cosigning physician, performed a history & physical examination of the patient. Lungs sounds with coarse crackles in the posterior bases. Maintaining good O2 saturations in the 90s on room air. I discussed the assessment and plan of care with my nurse practitioner, Ernestina Foreman. I attest to the above note as dictated by her.
--- NOTE | 2019-07-07 14:09 | P.DS ---
Providers Date of admission: 07/01/19 17:51 Expected date of discharge: 07/07/19 Attending physician: Dalton Theodore Consults: 07/01/19 19:59 Consult Physician Routine Consulting Provider: Shawn Patel Consult Reason/Comments: Right knee pain Do you want consulting provider notified?: Yes 07/01/19 21:19 Consult Physician Routine Consulting Provider: Samuel Morris Consult Reason/Comments: CHF Do you want consulting provider notified?: Yes 07/03/19 18:35 Consult Physician Routine Consulting Provider: Luis Hollins Consult Reason/Comments: afib RVR Do you want consulting provider notified?: Yes, Notify in am 07/03/19 21:26 Consult Physician Routine Consulting Provider: Edvin Baum Consult Reason/Comments: Pulmonary fibrosis Do you want consulting provider notified?: Yes Primary care physician: [facility] Course: Chief Complaint: Right knee pain History of presenting complaint: This is a pleasant 78-year-old patient of Dr. Edvin Lloyd. Chronic stable medical conditions include atrial fibrillation, diabetes, hypertension. Patient for 1 day having increased pain in the right knee. Not sure if she twisted it while sleeping. Also swollen. Trouble walking the same. No fever no chills. Patient has recently diagnosed with atrial fibrillation on eliquis. Being followed by Dr. YOAN Urbina. Patient had some shortness of breath for quite sometimes occasional cough with frothy sputum. Chest x-ray showed some venous prominence. No colored sputum. No fever or chills. Admitted with- acute right knee flare up of osteoarthritis.-treated with voltaren gel. Per orthopedic not felt to be candidate for intra-articular injection. Analgesics. high resolution computed tomography scan of the chest did confirm pulmonary fibrosis. Patient does not have acute CHF. atrial flutter has remained mainly controlled. Right upper lobe pneumonia-started on Levaquin. Today-eating fairly well. Pain well controlled. Discussed with patient. Discharge go to rehab. . Consultation: Dr. Tomlin and colleagues from pulmonary Dr. Shawn Patel from [facility]/Dr. Hollins Physical examination: VITAL SIGNS: 98.3, 91, 15, 131/35, 96% on room air GENERAL: Propped up in bed, comfortable EYES: Pupils equal. Conjunctiva normal. HEENT: External appearance of nose and ears normal, oral cavity grossly normal. Decreased hearing-chronic NECK: JVD possibly raise; masses not palpable. HEART: Heart sounds irregular; no edema. LUNGS: Respiratory rate normal; bilateral basal crackles. ABDOMEN: Soft, nontender, liver spleen not palpable, no masses palpable. PSYCH: Alert and oriented x3; mood and affect normal. MUSCULAR skeletal: Benson wrap on the right knee, evidence of OA especially in the hands INVESTIGATIONS, reviewed in the clinical context: Sodium 133 potassium 3.5 creatinine 0.46 Previous testing White count 10.9 hemoglobin 14.2 potassium 3.5 creatinine 0.39 Troponin I less than 0.012 proBNP 2009 EKG tracing personally reviewed by me-atrial fibrillation Chest x-ray film personally reviewed by me-venous prominence 2-D echo-moderate concentric left hypertrophy, EF 60-65%, moderate aortic stenosis, moderate mitral regurgitation, moderate to severe tricuspid regurgitation, moderate pulmonary hypertension, High-resolution computed tomography scan chest-bilateral pulmonary fibrosis, Sputum culture-Pseudomonas fluorescence Assessment: -New diagnosis-extensive bilateral pulmonary fibrosis -Right upper lobe pneumonia, POA -Hypotension. -No congestive heart failure. 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 Patient Condition at Discharge: Stable Plan - Discharge Summary Discharge Rx Participant: No New Discharge Prescriptions: New Diltiazem Oral [Cardizem*] 30 mg PO TID tab Levofloxacin [Levaquin] 750 mg PO DAILY@1200 #7 tab Acetaminophen-Codeine 300-30mg [Tylenol w/codeine #3] 1 each PO Q6H PRN #12 tab PRN Reason: MODERATE Pain Diclofenac Sodium Gel [Voltaren Gel] 4 gm TOPICAL QID tube Continue Loratadine [Claritin] 10 mg PO DAILY Ferrous Sulfate [Iron (65 MG Elemental)] 325 mg PO DAILY Cholecalciferol [Vitamin D3 (25 Mcg = 1000 Iu)] 1,000 unit PO DAILY Lisinopril-Hctz 20-25 mg [Zestoretic 20-25] 1 tab PO DAILY Furosemide [Lasix] 20 mg PO DAILY Apixaban [Eliquis] 5 mg PO BID Vitamin B Complex 1 cap PO DAILY Omeprazole Magnesium [PriLOSEC OTC] 20 mg PO DAILY L.acidoph,Paracasei, B.lactis [Probiotic] 1 cap PO DAILY Changed Metoprolol Tartrate [Lopressor] 25 mg PO BID #0 Discontinued cloNIDine HCL [Catapres] 0.1 mg PO BID Metoprolol Tartrate [Lopressor] 25 mg PO DAILY Nitrofurantoin Macrocrystal [Nitrofurantoin] 50 mg PO DAILY No Action Albuterol Sulfate [Proair Hfa] 2 puff INHALATION RT-Q4H PRN PRN Reason: Shortness Of Breath Ipratropium Chester [Ipratropium Chester 0.03%] 2 sprays EA NOSTRIL BID PRN PRN Reason: Congestion Discharge Medication List Albuterol Sulfate [Proair Hfa] 2 puff INHALATION RT-Q4H PRN 07/01/19 [History] Apixaban [Eliquis] 5 mg PO BID 07/01/19 [History] Cholecalciferol [Vitamin D3 (25 Mcg = 1000 Iu)] 1,000 unit PO DAILY 07/01/19 [History] Ferrous Sulfate [Iron (65 MG Elemental)] 325 mg PO DAILY 07/01/19 [History] Furosemide [Lasix] 20 mg PO DAILY 07/01/19 [History] Ipratropium Chester [Ipratropium Chester 0.03%] 2 sprays EA NOSTRIL BID PRN 07/01/19 [History] L.acidoph,Paracasei, B.lactis [Probiotic] 1 cap PO DAILY 07/01/19 [History] Lisinopril-Hctz 20-25 mg [Zestoretic 20-25] 1 tab PO DAILY 07/01/19 [History] Loratadine [Claritin] 10 mg PO DAILY 07/01/19 [History] Omeprazole Magnesium [PriLOSEC OTC] 20 mg PO DAILY 07/01/19 [History] Vitamin B Complex 1 cap PO DAILY 07/01/19 [History] Acetaminophen-Codeine 300-30mg [Tylenol w/codeine #3] 1 each PO Q6H PRN #12 tab 07/07/19 [Rx] Diclofenac Sodium Gel [Voltaren Gel] 4 gm TOPICAL QID tube 03/31/20 [Rx] Diltiazem Oral [Cardizem*] 30 mg PO TID tab 07/07/19 [Rx] Levofloxacin [Levaquin] 750 mg PO DAILY@1200 #7 tab 07/07/19 [Rx] Metoprolol Tartrate [Lopressor] 25 mg PO BID #0 07/07/19 [Rx] Follow up Appointment(s)/Referral(s): Edvin Baum DO [Doctor of Osteopathic Medicine] - 1 Week Edvin Lloyd MD [Primary Care Provider] - 07/09/19 11:30 am ( -telephone appointment) Shawn Patel DO [Doctor of Osteopathic Medicine] - As Needed Activity/Diet/Wound Care/Special Instructions: 1. May elevate the right knee for comfort support as needed 2. May use Benson wrap for comfort and support over the right knee as needed 3. May weight-bear as tolerated on the right lower extremity when her right knee pain is better controlled
[2019-07-07 14:33] VITALS: BP 91/51; PULSE 67; TEMP 97.6
== END 2019-07-07 16:00 | DRG 196 ==
LOC: EC 15:12 → 4SSUR 17:51 → 3SCARD 07-02 13:09 → 6NMEDSUR 07-06 13:13
PROVIDERS: ADMIT Hospitalist; ATTEND Hospitalist
PROC: 0S9C3ZZ Drainage of Right Knee Joint, Percutaneous Approach (ICD-10-PCS; principal; 2019-07-03)
DX: J84.10 Pulmonary fibrosis, unspecified (principal); J18.9 Pneumonia, unspecified organism; I48.19 Other persistent atrial fibrillation; I48.92 Unspecified atrial flutter; M25.00 Hemarthrosis, unspecified joint; I27.29 Other secondary pulmonary hypertension; I11.9 Hypertensive heart disease without heart failure; I95.9 Hypotension, unspecified; I08.3 Combined rheumatic disorders of mitral, aortic and tricuspid valves; M17.11 Unilateral primary osteoarthritis, right knee; E11.9 Type 2 diabetes mellitus without complications; Z79.899 Other long term (current) drug therapy; Z79.01 Long term (current) use of anticoagulants; E78.5 Hyperlipidemia, unspecified; Z90.710 Acquired absence of both cervix and uterus; Z87.891 Personal history of nicotine dependence; Z98.890 Other specified postprocedural states; Z98.51 Tubal ligation status; Z88.0 Allergy status to penicillin; Z88.2 Allergy status to sulfonamides; Z80.1 Family history of malignant neoplasm of trachea, bronchus and lung; Z83.49 Family history of other endocrine, nutritional and metabolic diseases; Z82.49 Family history of ischemic heart disease and other diseases of the circulatory system
CPT/HCPCS: 36415; 71046; 71250; 80048; 80053; 83605; 83735; 83880; 84145; 84484; 85025; 85610; 85730; 87040; 87070; 87077; 87186; 87205; 87502; 93005; 93306; 96365; 96375; 99285